=== PATIENT | male | born 1950 | race Caucasian/White ===

== ENCOUNTER 2016-04-28 07:00 | Day surgery (SDC) | payer MEDICARE, BC ==
[2016-04-26 16:35] VITALS: BMI 31.8
[~2016-04-28 07:00] MED LIST: LACTATED RINGERS 1,000 ML IV SCH; LIDOCAINE 1% 20 ML VIAL (10MG/ML) FOR IV START INTRADERMA PRN
[2016-04-28 07:16] VITALS: TEMP 97.4
[2016-04-28] MEDS ORDERED: PROPOFOL 10 MG/ML 20 ML VIAL IV ONE (07:44)
[2016-04-28] MEDS ORDERED: LIDOCAINE 1% INJ 10MG/ML (20 ML MDV) ONE (07:44)
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
--- NOTE | 2016-04-28 08:04 | P.OP ---
Date of Procedure: 04/28/16 Preoperative Diagnosis: Diverticulitis Screening colonoscopy Postoperative Diagnosis: Diverticulosis Rectal polyp Procedure(s) Performed: Colonoscopy Anesthesia: MAC Surgeon: Sam Camejo Pathology: other (Rectal polyp) Condition: stable Disposition: PACU Description of Procedure: The patient's placed on the endoscopy table in the lateral position. He received IV sedation. Digital rectal exam was performed which revealed no abnormalities. The prostate was symmetrical without nodules. The flexible colonoscope was then placed patient anus passed throughout the entire colon. The ileocecal valve was visualized. The cecum, ascending and transverse colon appeared normal. In the descending and sigmoid colon there is mild diverticular changes. There is more extensive diverticular changes and sigmoid colon. The scope was then brought back the rectum and a small polyp was seen. This removed the forcep. The scope was then withdrawn from patient.
[2016-04-28 08:09] VITALS: RESP 16
[2016-04-28 08:13] LABS: INR 1.1 (<1.1); Partial Thromboplastin Time 24.9 sec (22.0-30.0); Prothrombin Time 10.8 sec (9.0-12.0)
[2016-04-28 08:24] VITALS: BP 172/91; PULSE 87
== END 2016-04-28 08:56 | disposition home or self-care (01) ==
LOC: ORWHC2ENDO 07:00
PROVIDERS: ATTEND Surgery
DX: K63.5 Polyp of colon (principal); K57.30 Diverticulosis of large intestine without perforation or abscess without bleeding; K21.9 Gastro-esophageal reflux disease without esophagitis; N02.8 Recurrent and persistent hematuria with other morphologic changes; Z87.891 Personal history of nicotine dependence; Z86.718 Personal history of other venous thrombosis and embolism; Z86.711 Personal history of pulmonary embolism; Z79.01 Long term (current) use of anticoagulants; E78.5 Hyperlipidemia, unspecified; I10 Essential (primary) hypertension; L40.9 Psoriasis, unspecified; G47.33 Obstructive sleep apnea (adult) (pediatric); M10.9 Gout, unspecified; Z79.02 Long term (current) use of antithrombotics/antiplatelets; Z79.899 Other long term (current) drug therapy; Z88.5 Allergy status to narcotic agent
CPT/HCPCS: 88305; 84132; 85610; 85730; 45380; J2001; J2704; 99153

== ENCOUNTER 2016-04-29 06:12 | Inpatient (IN) | payer MEDICARE, BC ==
[~2016-04-29 06:12] MED LIST changes: +DEXAMETHASONE SOD PHOSPHATE 10 MG/ML 1 ML VIAL IV ONE; +HEPARIN SODIUM,PORCINE 5,000 UNIT/ML 1 ML VIAL SQ ONE; -LACTATED RINGERS 1,000 ML IV SCH; -LIDOCAINE 1% 20 ML VIAL (10MG/ML) FOR IV START INTRADERMA PRN; +MIDAZOLAM 2 MG/2 ML VIAL IV PRN; +ONDANSETRON 4 MG/2 ML VIAL IVP ONE; +ceFAZolin 2 GM in SODIUM CHLORIDE 0.9% 100 ML IVPB ONE; +fentaNYL (PF) 50 MCG/ML 2 ML AMP IV PRN
[2016-04-29] MEDS: LACTATED RINGERS 1,000 ML IV SCH (06:43)
[2016-04-29] MEDS ORDERED: LIDOCAINE 1% 20 ML VIAL (10MG/ML) FOR IV START INTRADERMA ONE (06:44)
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
[2016-04-29] MEDS ORDERED: fentaNYL (PF) 50 MCG/ML 2 ML AMP ONE (07:56)
[2016-04-29] MEDS ORDERED: LIDOCAINE 1% INJ 10MG/ML (20 ML MDV) ONE (07:56)
[2016-04-29] MEDS ORDERED: NEOSTIGMINE 1 MG/ML 10 ML VIAL ONE (07:56)
[2016-04-29] MEDS ORDERED: GLYCOPYRROLATE 0.2 MG/ML 2 ML VIAL ONE (07:56)
[2016-04-29] MEDS ORDERED: SUCCINYLCHOLINE CHLORIDE 100 MG/5 ML SYR IV ONE (07:56)
[2016-04-29] MEDS ORDERED: HYDROmorphone (PF) 1 MG/ML ONE (07:56)
[2016-04-29] MEDS ORDERED: PROPOFOL 10 MG/ML 20 ML VIAL IV ONE (07:56)
[2016-04-29] MEDS ORDERED: ROCURONIUM BROMIDE 10 MG/ML 10 ML VIAL IV ONE (07:56)
[2016-04-29] MEDS ORDERED: MIDAZOLAM 2 MG/2 ML VIAL ONE (07:56)
[2016-04-29] MEDS ORDERED: BUPIVACAIN-EPI 0.25%-1:200,000 30 ML VIAL SQ ONE ×2 (08:30)
[2016-04-29] MEDS ORDERED: LACTATED RINGERS 1,000 ML IV ONE ×2 (09:07→10:07)
[2016-04-29] MEDS ORDERED: ONDANSETRON 4 MG/2 ML VIAL IVP PRN (10:07)
[2016-04-29] MEDS ORDERED: BENZOCAINE/MENTHOL LOZENG 1 EACH LOZENGE MUCOUS MEM PRN (10:07)
--- NOTE | 2016-04-29 10:07 | P.OP ---
Date of Procedure: 04/29/16 Preoperative Diagnosis: Perforated diverticulitis Closed lysis Umbilical hernia Postoperative Diagnosis: Diverticulitis Cholelithiasis Umbilical hernia Procedure(s) Performed: Laparoscopic cholecystectomy Laparoscopic-assisted low anterior section Umbilical hernia Anesthesia: MARSHALL Surgeon: Sam Camejo Estimated Blood Loss (ml): 75 Pathology: other (Gallbladder, sigmoid colon) Condition: stable Disposition: PACU Description of Procedure: The patient was placed on the operating table. The patient received a general endotracheal tube anesthesia. The patients abdomen was prepped and draped in the usual sterile fashion. Through an infraumbilical stab incision, the fascia of the anterior abdominal wall was grasped with a pair of Kochers and then the Veress needle was placed in the peritoneal cavity. Position of the Veress needle was confirmed with positive drop test. The abdomen was then insufflated. After adequate insufflation, the 10 mm trocar was placed in the peritoneal cavity. Following this the laparoscope was placed in the peritoneal cavity. The patient was placed in the head-up, right side up position and then a 5 mm trocar was placed in the right lateral and right subcostal position under direct visualization. A 8 mm trocar was placed in the epigastric position. The gallbladder was grasped in the fundus and infundibulum. Traction on the gallbladder was placed in the lateral and the cephalad positions. The triangle of Calot was visualized.. The cystic duct was bluntly dissected until the union of the cystic duct and common bile duct was seen. The cystic duct was then divided and sealed with the Harmonic scissors. A PDS Endoloop was then placed throughout the cystic duct stump. The cystic artery divided and sealed with the Harmonic scissors. The gallbladder was then removed from the liver bed using Harmonic scissors. The gallbladder was then extracted through the epigastric port site. Operative field was checked for any bleeding spots and Harmonic scissors was used to coagulate the liver bed. The abdomen was irrigated. Next the laparoscope was position of the sigmoid colon. There was inflammatory changes seen in the sigmoid colon. The; was adherent to the lateral abdominal wall. Another 5 mm trocar was placed in the right lower quadrant. And then used the Harmonic scissors the sigmoid colon was dissected free from the lateral abdominal wall. The white line of Toldt was divided towards the splenic flexure. In the colon was dissected medially. In the left colon and sigmoid colon were mobilized. At this point the trochars withdrawn. The laparoscope withdrawn. And a low midline incision was made. The colon was further mobilized with blunt and sharp dissection. And then the rectum was transected with the contour stapler. At this point using the LigaSure device the mesentery of the sigmoid colon was divided. The proximal colon was then divided with the linear cutter stapler. The pursestring device was applied on the proximal colon. After the colonic and had been dissected free of any peritoneal fat. The pursestring device was fired and then the colon was opened and the 25 mm EEA stapler anvil was placed into the colon and then the pursestring was secured. The 25 mm EEA stapler was then placed by the first helper into the rectum and then the staple device was guided towards the distal staple line. The stapler was opened and the spike was driven through the staple line and the anvil was connected to the stapler. The stapler was then closed and fired and then withdrawn. 2 intact donuts of tissue rings were withdrawn from stapler. At this point a hydro-sheet metal smith was placed across the proximal colon and then the rectum was insufflated with air via a rigid sigmoidoscope. There was a small amount of extravasation of air on the right lateral aspect and staple line. This was closed using 3-0 GI silk. The air was insufflated back the rectum and there is no extravasation of air seen. The test was done 3 times with an of air pressure for the air to come out around the anus. There is no leak seen. At this point the abdomen was irrigated. The fascia was closed with looped #1 PDS suture. The umbilical hernia repair was performed during the fascial closure. The skin was closed gato. Patient sent to recovery in stable condition.
[2016-04-29] MEDS: HYDROmorphone 1 MG/ML 1 ML SYRINGE IVP ONE ×2 (10:30→10:39)
[2016-04-29] MEDS ORDERED: ENALAPRILAT 1.25 MG/ML 1 ML VIAL IVP ONE (10:39)
[2016-04-29] MEDS ORDERED: LABETALOL SYRINGE 5 MG/ML IVP ONE (10:45)
[2016-04-29] MEDS: HYDROmorphone 1 MG/ML 1 ML SYRINGE IVP PRN ×3 (11:55→23:26)
[2016-04-29] MEDS: NALOXONE 0.4 MG/ML 1 ML VIAL ONE (12:19)
[2016-04-29] MEDS: D5-0.45% NACL WITH KCL 20MEQ/L 1,000 ML IV SCH ×2 (12:29→19:37)
[2016-04-29] MEDS: METOCLOPRAMIDE 5 MG/ML 2 ML VIAL IVP SCH ×3 (13:30→23:25)
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
[2016-04-29] MEDS: HEPARIN SODIUM,PORCINE 5,000 UNIT/ML 1 ML VIAL SQ SCH ×2 (16:48→23:25)
[2016-04-29] MEDS: ALVIMOPAN 12 MG CAPSULE PO SCH (19:45)
[2016-04-29] MEDS: PREGABALIN 75 MG CAP PO SCH (19:45)
[2016-04-29] MEDS: METOPROLOL TARTRATE 50 MG TAB PO SCH (19:45)
[2016-04-29] MEDS: LISINOPRIL 10 MG TAB PO SCH (19:45)
[2016-04-29] MEDS: FAMOTIDINE 20 MG/2 ML VIAL IV SCH (19:45)
[2016-04-29] MEDS: MODAFINIL 200 MG TAB PO SCH (22:07)
[2016-04-30] MEDS: D5-0.45% NACL WITH KCL 20MEQ/L 1,000 ML IV SCH (03:03)
[2016-04-30] MEDS: HYDROmorphone 1 MG/ML 1 ML SYRINGE IVP PRN ×4 (03:03→11:23)
[2016-04-30] MEDS: METOCLOPRAMIDE 5 MG/ML 2 ML VIAL IVP SCH ×4 (06:11→23:42)
[2016-04-30 07:15] LABS: Basophils % (A) 0 %; CH 31.5; CHCM 34.8; Eosinophils % (A) 0 %; HCT 27.6 % (39.0-53.0); HDW 3.11; HGB 9.4 gm/dL (13.0-17.5); Luc # (Auto) 0.16; Luc % (Auto) 2; Lymphocytes # (A) 1.5 k/uL (1.0-4.8); Lymphocytes % (A) 15 %; MCH 31.1 pg (25.0-35.0); MCHC 34.2 g/dL (31.0-37.0); MCV 91.1 fL (80.0-100.0); Monocytes # (A) 0.6 k/uL (0-1.0); Monocytes % (A) 6 %; Neutrophils # (A) 7.9 k/uL (1.3-7.7); Neutrophils % (A) 78 %; RBC 3.03 m/uL (4.30-5.90); RDW 14.1 % (11.5-15.5); WBC 10.2 k/uL (3.8-10.6); WBC (Perox) 11.31
[2016-04-30 07:17] LABS: Calcium 7.7 mg/dL (8.4-10.2); Potassium 5.7 mmol/L (3.5-5.1); Total Bilirubin 0.4 mg/dL (0.2-1.3); Total Protein 5.5 g/dL (6.3-8.2)
[2016-04-30] MEDS: HEPARIN SODIUM,PORCINE 5,000 UNIT/ML 1 ML VIAL SQ SCH (08:27)
[2016-04-30] MEDS: FAMOTIDINE 20 MG/2 ML VIAL IV SCH ×2 (08:28→16:29)
[2016-04-30] MEDS: ATORVASTATIN 20 MG TAB PO SCH (08:28)
[2016-04-30] MEDS: ALVIMOPAN 12 MG CAPSULE PO SCH ×2 (08:28→19:27)
[2016-04-30] MEDS: METOPROLOL TARTRATE 50 MG TAB PO SCH ×2 (08:29→19:27)
[2016-04-30] MEDS: TAMSULOSIN 0.4 MG CAP.ER.24H PO SCH (08:30)
[2016-04-30] MEDS: PREGABALIN 75 MG CAP PO SCH ×2 (08:30→19:27)
[2016-04-30] MEDS: DEXTROSE 5%-0.45% NACL 1,000 ML IV SCH ×3 (08:39→23:43)
[2016-04-30] MEDS: MODAFINIL 200 MG TAB PO SCH ×2 (08:40→21:44)
--- NOTE | 2016-04-30 09:46 | P.PN ---
Subjective Principal diagnosis: Diverticulitis Patient still having abdominal discomfort. Apparently he was having some issues initially with Dilaudid and Narcan was utilized. Small amounts of narcotics of been utilized since that time. Labs were reviewed. Creatinine slightly elevated. White blood cell count normal. Objective - Vital Signs Vital signs: Vital Signs Temp 97.9 F 04/30/16 01:22 Pulse 75 04/30/16 01:22 Resp 16 04/30/16 01:22 BP 131/79 04/30/16 01:22 Pulse Ox 96 04/30/16 01:22 Intake & Output 04/29/16 04/30/16 04/30/16 18:59 06:59 18:59 Intake Total 1700 Output Total 285 600 Balance 1415 -600 Intake: IV 1700 Output: Urine 210 600 Estimated Blood Loss 75 Other: Voiding Method Indwelling Catheter - Exam Abdomen: Soft, mild distention, mild diffuse tenderness, dressings intact - Labs CBC & Chem 7: 04/30/16 06:50 04/30/16 06:50 Labs: Abnormal Lab Results - Last 24 Hours (Table) 04/30/16 04/30/16 Range/Units 06:50 06:50 RBC 3.03 L (4.30-5.90) m/uL Hgb 9.4 L (13.0-17.5) gm/dL Hct 27.6 L (39.0-53.0) % Neutrophils # 7.9 H (1.3-7.7) k/uL Potassium 5.7 H (3.5-5.1) mmol/L Chloride 111 H (98-107) mmol/L BUN 36 H (9-20) mg/dL Creatinine 2.21 H (0.66-1.25) mg/dL Glucose 138 H (74-99) mg/dL Calcium 7.7 L (8.4-10.2) mg/dL Total Protein 5.5 L (6.3-8.2) g/dL Albumin 2.6 L (3.5-5.0) g/dL Assessment and Plan (1) Diverticulitis Narrative/Plan: Keep nothing by mouth for now. Increase activity levels. Add Toradol for pain control. Switch heparin to Lovenox because of the patient's prior history of thrombosis. Status: Acute
[2016-04-30] MEDS: KETOROLAC 30 MG/ML 1 ML VIAL IVP SCH ×3 (11:24→23:42)
[2016-04-30] MEDS ORDERED: NALOXONE 0.4 MG/ML 1 ML VIAL IV PRN (12:07)
[2016-04-30] MEDS: HYDROmorphone PCA 5 MG/25 ML SYRINGE IV PRN (12:25)
--- NOTE | 2016-04-30 14:07 | P.PN ---
Subjective Principal diagnosis: Diverticulitis and cholelithiasis Patient is a 65-year-old male, patient of Dr. Rausch. He has a known history of DVT and multiple PE, obstructive sleep apnea, hypertension, chronic kidney disease, perforated diverticulitis with abscess. Patient presents to the hospital today for laparoscopic cholecystectomy and laparoscopic assisted lower anterior resection. We are consulted for medical management. On review of systems: Patient denies any chest pain, shortness of breath, nausea or vomiting. Patient was having bowel movements prior to surgery. Denies any difficulty urinating prior to surgery. Objective - Vital Signs Vital signs: Vital Signs Temp 98.1 F 04/30/16 07:00 Pulse 71 04/30/16 07:00 Resp 16 04/30/16 07:00 BP 155/85 04/30/16 07:00 Pulse Ox 98 04/30/16 13:01 Intake & Output 04/29/16 04/30/16 04/30/16 18:59 06:59 18:59 Intake Total 1700 Output Total 285 600 Balance 1415 -600 Intake: IV 1700 Output: Urine 210 600 Estimated Blood Loss 75 Other: Voiding Method Indwelling Catheter - Exam In general patient is alert and oriented 3 in no apparent distress HEENT head normocephalic and atraumatic Neck is supple no JVD no goiter no lymphadenopathy Chest exam reveals a few scattered rhonchi no wheezing Cardiac exam reveals regular heart sounds no murmurs Abdomen is soft nontender no organomegaly Extremity exam reveals no edema no cyanosis or clubbing - Labs CBC & Chem 7: 04/30/16 06:50 04/30/16 06:50 Labs: Abnormal Lab Results - Last 24 Hours (Table) 04/30/16 04/30/16 Range/Units 06:50 06:50 RBC 3.03 L (4.30-5.90) m/uL Hgb 9.4 L (13.0-17.5) gm/dL Hct 27.6 L (39.0-53.0) % Neutrophils # 7.9 H (1.3-7.7) k/uL Potassium 5.7 H (3.5-5.1) mmol/L Chloride 111 H (98-107) mmol/L BUN 36 H (9-20) mg/dL Creatinine 2.21 H (0.66-1.25) mg/dL Glucose 138 H (74-99) mg/dL Calcium 7.7 L (8.4-10.2) mg/dL Total Protein 5.5 L (6.3-8.2) g/dL Albumin 2.6 L (3.5-5.0) g/dL Assessment and Plan Plan: 1. Diverticulitis with previous history of perforated diverticulitis, cholelithiasis and umbilical hernia: Patient is postop day #1 status post endoscopic cholecystectomy, laparoscopic assisted lower anterior resection and umbilical hernia repair. Patient tolerated surgery well. Continue with postop orders 2. Episode of respiratory distress after IV Dilaudid. Patient was given Narcan. Symptoms have resolved. Anesthesia is involved in pain management. Patient is now arousable. 3. History of multiple PEs and DVT of the left leg diagnosed in July 2015: On Coumadin at home. 4. IgA nephropathy and chronic kidney disease stage III 5. Essential hypertension: Resume lisinopril and metoprolol 6. Hyperlipidemia resume Lipitor 7. History of obstructive sleep apnea 8. Previous history of abdominal abscess treated with antibiotics 9. Chronic renal failure creatinine stable at baseline Will monitor closely 10. Due to previous history of PE and DVT patient will be placed on Lovenox 80 mg twice daily subcu he will be restarted on Coumadin when okay with surgery
[2016-04-30] MEDS: ENOXAPARIN 80 MG/0.8 ML SYRINGE SQ SCH ×2 (16:28→23:51)
[2016-04-30] MEDS: LISINOPRIL 10 MG TAB PO SCH (19:27)
[2016-04-30] MEDS ORDERED: ENOXAPARIN 40 MG/0.4 ML SYRINGE SQ SCH (21:00)
[2016-05-01] MEDS: METOCLOPRAMIDE 5 MG/ML 2 ML VIAL IVP SCH ×3 (05:39→18:27)
[2016-05-01] MEDS: KETOROLAC 30 MG/ML 1 ML VIAL IVP SCH ×3 (05:39→18:27)
[2016-05-01] MEDS: DEXTROSE 5%-0.45% NACL 1,000 ML IV SCH ×3 (05:42→18:32)
[2016-05-01 07:18] LABS: Basophils % (A) 0 %; CHCM 34.7; Eosinophils # (A) 0.2 k/uL (0-0.7); Eosinophils % (A) 2 %; HCT 26.9 % (39.0-53.0); HDW 3.08; Luc # (Auto) 0.11; Luc % (Auto) 2; Lymphocytes # (A) 2.1 k/uL (1.0-4.8); Lymphocytes % (A) 31 %; MCH 31.1 pg (25.0-35.0); MCHC 33.5 g/dL (31.0-37.0); MCV 92.8 fL (80.0-100.0); Mean Platelet Volume 8.2; Monocytes # (A) 0.4 k/uL (0-1.0); Monocytes % (A) 6 %; Neutrophils % (A) 59 %; RDW 14.2 % (11.5-15.5); WBC 6.7 k/uL (3.8-10.6); WBC (Perox) 6.67
[2016-05-01 07:34] LABS: Potassium 4.6 mmol/L (3.5-5.1); Total Bilirubin 0.5 mg/dL (0.2-1.3); Total Protein 5.5 g/dL (6.3-8.2)
--- NOTE | 2016-05-01 08:30 | P.PN ---
Subjective 65-year-old male being seen in rounds. at bedside. Patient currently is on an epidural in which the patient indicates has been effective for pain control Patient is postop laparoscopic cholecystectomy with a l laparoscopic assisted ow anterior section umbilical hernia for diverticulitis and cholelithiasis done on April 29 remains nothing by mouth Objective - Vital Signs Vital signs: Vital Signs Temp 97.9 F 05/01/16 07:30 Pulse 70 05/01/16 07:30 Resp 15 05/01/16 07:30 BP 156/90 05/01/16 07:30 Pulse Ox 97 05/01/16 07:30 Intake & Output 04/30/16 05/01/16 05/01/16 18:59 06:59 18:59 Intake Total 720 0 Output Total 1999 480 Balance -1280 -480 Intake: Oral 720 0 Output: Urine 1999 480 Straight 400 Uretheral (Daugherty) 1000 Other: Voiding Method Indwelling Catheter Toilet # Voids 2 - Exam Physical exam 65-year-old gentleman resting in bed in arousable to verbal stimuli appears in no acute distress oriented 3 Lungs essentially clear adequate air movement heart S1-S2 audible and regular Abdomen few hypoactive bowel tones noted abdominal dressing no no drainage noted abdominal binder in place currently nothing by mouth reportedly is urinating with no difficulty Extremities Venodyne's on to the bilateral lower extremities no edema - Labs CBC & Chem 7: 05/01/16 06:44 05/01/16 06:44 Labs: Abnormal Lab Results - Last 24 Hours (Table) 05/01/16 05/01/16 Range/Units 06:44 06:44 RBC 2.90 L (4.30-5.90) m/uL Hgb 9.0 L (13.0-17.5) gm/dL Hct 26.9 L (39.0-53.0) % Chloride 111 H (98-107) mmol/L BUN 36 H (9-20) mg/dL Creatinine 2.50 H (0.66-1.25) mg/dL Calcium 8.0 L (8.4-10.2) mg/dL Total Protein 5.5 L (6.3-8.2) g/dL Albumin 2.6 L (3.5-5.0) g/dL Assessment and Plan Plan: Impression Postop day 2 status post endoscopic cholecystectomy, laparoscopic assisted low anterior resection and an umbilical hernia repair History of multiple PEs and DVTs of the left leg diagnosed in July 2015 on Coumadin at home History of diverticulitis with previous history of perforated diverticulitis History of obstructive sleep apnea Essential Hypertension Episode of respiratory distress after IV Dilaudid. Patient was given Narcan. Symptoms have resolved .IgA nephropathy and chronic kidney disease stage III Hyperlipidemia Chronic renal failure creatinine stable Hyperkalemia improving potassium 4.6 Plan Anesthesia to be involved in pain management defer to When appropriate will restart Coumadin continue Lovenox 80 mg twice a day as ordered Continue postop surgical care per surgery Repeat labs monitor creatinine Monitor blood pressure and heart rate address as indicated DVT and GI prophylaxis Further recommendations pending Continue Lopressor 50 twice a day Continue lisinopril 10 mg at bedtime as ordered monitor potassium The above dictated assessment and findings were discussed with dr freddy Kay and the plan of care have been dictated as directed. Giovanna Post nurse practitioner acting as a scribe for dr hayes
[2016-05-01] MEDS: TAMSULOSIN 0.4 MG CAP.ER.24H PO SCH (09:17)
[2016-05-01] MEDS: ALVIMOPAN 12 MG CAPSULE PO SCH ×2 (09:17→20:30)
[2016-05-01] MEDS: ENOXAPARIN 80 MG/0.8 ML SYRINGE SQ SCH (09:17)
[2016-05-01] MEDS: METOPROLOL TARTRATE 50 MG TAB PO SCH ×2 (09:17→20:25)
[2016-05-01] MEDS: FAMOTIDINE 20 MG/2 ML VIAL IV SCH (09:22)
[2016-05-01] MEDS: PREGABALIN 75 MG CAP PO SCH ×2 (09:44→20:25)
[2016-05-01] MEDS: ATORVASTATIN 20 MG TAB PO SCH (09:45)
--- NOTE | 2016-05-01 10:47 | P.PN ---
Subjective Principal diagnosis: Diverticulitis I have been updated by the patient's nursing staff throughout the afternoon and evening yesterday. His pain was intermittently controlled yesterday morning with Dilaudid IV push. The [employer] was started yesterday afternoon which apparently led to excellent pain control per the nursing staff and the patient admits that his pain has been about a 2-3 since yesterday afternoon when the [employer] was started. There have been a variety of social issues over the last 24- 48 hours. The patient's has per the nursing staff been belligerent and threatening at times. For the most part I was not witnessed to this. When I evaluated the patient yesterday morning and I suggested starting Toradol the mentioned that in the past it did not work well for him for pain control and that they actually had used it for nausea symptoms. I suggested that it may help when adding into the narcotics. She never told me that she did not want the Toradol given but later in the afternoon notified the nursing staff that I had been instructed by her not to prescribe Toradol. That was clearly not true. This morning the patient's became once again argumentative and apparently after threatening the nursing staff once again was escorted out of the building by security. The patient states that he wants to be transferred if his cannot be visiting him in his hospital room. He still has having adequate pain control with his [employer]. He is afebrile. No tachycardia. White blood cell count 6.7 hemoglobin 9.0 no flatus. The patient is upset that his clear liquid diet was held however I informed the patient that his diet was held because of the amount of discomfort he was having yesterday. Objective - Vital Signs Vital signs: Vital Signs Temp 97.9 F 05/01/16 07:30 Pulse 70 05/01/16 07:30 Resp 15 05/01/16 07:30 BP 156/90 05/01/16 07:30 Pulse Ox 97 05/01/16 07:30 Intake & Output 04/30/16 05/01/16 05/01/16 18:59 06:59 18:59 Intake Total 720 0 Output Total 1999 480 Balance -1280 -480 Intake: Oral 720 0 Output: Urine 1999 480 Straight 400 Uretheral (Daugherty) 1000 Other: Voiding Method Indwelling Catheter Toilet # Voids 2 - Exam Abdomen: Soft, mild distention, mild incisional tenderness, incision clean and dry however the dressing had some old bloody fluid - Labs CBC & Chem 7: 05/01/16 06:44 05/01/16 06:44 Labs: Abnormal Lab Results - Last 24 Hours (Table) 05/01/16 05/01/16 Range/Units 06:44 06:44 RBC 2.90 L (4.30-5.90) m/uL Hgb 9.0 L (13.0-17.5) gm/dL Hct 26.9 L (39.0-53.0) % Chloride 111 H (98-107) mmol/L BUN 36 H (9-20) mg/dL Creatinine 2.50 H (0.66-1.25) mg/dL Calcium 8.0 L (8.4-10.2) mg/dL Total Protein 5.5 L (6.3-8.2) g/dL Albumin 2.6 L (3.5-5.0) g/dL Assessment and Plan (1) Diverticulitis Narrative/Plan: Will begin clear liquid diet. Continue [employer] for pain control. Increase activity level. Continue working with the patient's family to determine whether transfer out of this facility is necessary. Status: Acute
[2016-05-01] MEDS: MODAFINIL 200 MG TAB PO SCH ×2 (12:17→20:43)
[2016-05-01 19:17] LABS: Basophils % (A) 0 %; CH 31.6; CHCM 34.2; Eosinophils # (A) 0.3 k/uL (0-0.7); Eosinophils % (A) 5 %; HCT 26.1 % (39.0-53.0); HDW 3.05; HGB 8.8 gm/dL (13.0-17.5); Luc # (Auto) 0.13; Luc % (Auto) 2; Lymphocytes % (A) 32 %; MCH 31.4 pg (25.0-35.0); MCHC 33.8 g/dL (31.0-37.0); Mean Platelet Volume 8.5; Monocytes # (A) 0.4 k/uL (0-1.0); Monocytes % (A) 6 %; Neutrophils # (A) 3.6 k/uL (1.3-7.7); Neutrophils % (A) 56 %; RDW 14.2 % (11.5-15.5); WBC 6.5 k/uL (3.8-10.6); WBC (Perox) 6.39
[2016-05-01 19:36] LABS: INR 1.2 (<1.1); Partial Thromboplastin Time 32.8 sec (22.0-30.0); Prothrombin Time 12.1 sec (9.0-12.0)
[2016-05-01] MEDS: LISINOPRIL 10 MG TAB PO SCH (20:25)
[2016-05-01] MEDS: LACTATED RINGERS 1,000 ML IV SCH (22:20)
[2016-05-02] MEDS: METOCLOPRAMIDE 5 MG/ML 2 ML VIAL IVP SCH ×4 (01:05→17:29)
[2016-05-02] MEDS: HYDROmorphone PCA 5 MG/25 ML SYRINGE IV PRN (01:40)
[2016-05-02] MEDS: TAMSULOSIN 0.4 MG CAP.ER.24H PO SCH (08:06)
[2016-05-02] MEDS: METOPROLOL TARTRATE 50 MG TAB PO SCH ×2 (08:06→21:37)
[2016-05-02] MEDS: ALVIMOPAN 12 MG CAPSULE PO SCH ×2 (08:06→21:37)
[2016-05-02] MEDS: PREGABALIN 75 MG CAP PO SCH ×2 (08:06→21:37)
[2016-05-02] MEDS: DEXTROSE 5%-0.45% NACL 1,000 ML IV SCH ×2 (08:07→21:39)
[2016-05-02] MEDS: ALPRAZolam 0.25 MG TAB PO SCH ×2 (09:00→21:38)
[2016-05-02] MEDS: FAMOTIDINE 20 MG/2 ML VIAL IV SCH (09:00)
[2016-05-02] MEDS: MODAFINIL 200 MG TAB PO SCH ×2 (09:02→18:16)
[2016-05-02 09:03] LABS: Basophils # (A) 0.1 k/uL (0-0.2); Basophils % (A) 1 %; CH 31.7; CHCM 34.2; Eosinophils # (A) 0.3 k/uL (0-0.7); Eosinophils % (A) 3 %; HCT 24.5 % (39.0-53.0); HDW 3.21; HGB 8.3 gm/dL (13.0-17.5); Luc # (Auto) 0.18; Luc % (Auto) 2; Lymphocytes # (A) 2.3 k/uL (1.0-4.8); Lymphocytes % (A) 21 %; MCH 31.8 pg (25.0-35.0); MCV 93.5 fL (80.0-100.0); Mean Platelet Volume 8.3; Monocytes # (A) 0.7 k/uL (0-1.0); Monocytes % (A) 6 %; Neutrophils # (A) 7.7 k/uL (1.3-7.7); Neutrophils % (A) 69 %; RBC 2.62 m/uL (4.30-5.90); RDW 14.3 % (11.5-15.5); WBC 11.3 k/uL (3.8-10.6); WBC (Perox) 11.72
[2016-05-02] MEDS: ATORVASTATIN 20 MG TAB PO SCH (09:04)
[2016-05-02 09:30] LABS: Calcium 7.9 mg/dL (8.4-10.2); Potassium 4.5 mmol/L (3.5-5.1); Total Bilirubin 0.5 mg/dL (0.2-1.3); Total Protein 5.5 g/dL (6.3-8.2)
[2016-05-02] MEDS: hydrALAZINE HCL 20 MG/ML 1 ML VIAL IVP PRN (10:10)
--- NOTE | 2016-05-02 14:12 | P.PN ---
Subjective Patient presents to the hospital today for laparoscopic cholecystectomy and laparoscopic assisted lower anterior resection. Patient had a lot of sanguinous drainage from incision site. Abdominal pressure dressings were added. His hemoglobin has dropped from 8.8-8.3. Surgery is following closely. He did have a jump in his white count 11.3. Patient's pain is better controlled with the [employer] pump. He is lying in bed comfortably with no distress. He is sleeping. He is arousable. Xanax was added for his anxiety. He denies any chest pain, shortness breath, nausea or vomiting he has not passed gas or had bowel movement yet. Objective - Vital Signs Vital signs: Vital Signs Temp 98.0 F 05/02/16 07:00 Pulse 76 05/02/16 07:00 Resp 18 05/02/16 07:00 BP 152/108 05/02/16 07:00 Pulse Ox 98 05/02/16 07:00 Intake & Output 05/01/16 05/02/16 05/02/16 18:59 06:59 18:59 Output Total 525 Balance -525 Output: Urine 525 Other: Voiding Method Toilet Urinal # Voids 2 # Bowel Movements 0 - Exam Head normocephalic Neck supple Lungs clear to auscultation bilaterally no wheezing or crackles Heart regular rate and rhythm S1-S2, no rub or gallop Abdomen is soft and distended hypoactive bowel sounds. Abdominal binder in place Extremities no edema Neuro alert and orientated to 3 - Labs CBC & Chem 7: 05/02/16 07:57 05/02/16 07:57 Labs: Abnormal Lab Results - Last 24 Hours (Table) 05/01/16 05/01/16 05/02/16 Range/Units 19:06 19:06 07:57 WBC 11.3 H (3.8-10.6) k/uL RBC 2.80 L 2.62 L (4.30-5.90) m/uL Hgb 8.8 L 8.3 L (13.0-17.5) gm/dL Hct 26.1 L 24.5 L (39.0-53.0) % PT 12.1 H (9.0-12.0) sec APTT 32.8 H (22.0-30.0) sec Chloride (98-107) mmol/L Carbon Dioxide (22-30) mmol/L BUN (9-20) mg/dL Creatinine (0.66-1.25) mg/dL Glucose (74-99) mg/dL Calcium (8.4-10.2) mg/dL Total Protein (6.3-8.2) g/dL Albumin (3.5-5.0) g/dL 05/02/16 Range/Units 07:57 WBC (3.8-10.6) k/uL RBC (4.30-5.90) m/uL Hgb (13.0-17.5) gm/dL Hct (39.0-53.0) % PT (9.0-12.0) sec APTT (22.0-30.0) sec Chloride 109 H (98-107) mmol/L Carbon Dioxide 21 L (22-30) mmol/L BUN 32 H (9-20) mg/dL Creatinine 2.54 H (0.66-1.25) mg/dL Glucose 139 H (74-99) mg/dL Calcium 7.9 L (8.4-10.2) mg/dL Total Protein 5.5 L (6.3-8.2) g/dL Albumin 2.7 L (3.5-5.0) g/dL Assessment and Plan Plan: 1. Diverticulitis with previous history of perforated diverticulitis, cholelithiasis and umbilical hernia: Patient is postop day #3 status post endoscopic cholecystectomy, laparoscopic assisted lower anterior resection and umbilical hernia repair. Patient tolerated surgery well. Continue with postop orders 2. Episode of respiratory distress after IV Dilaudid. Patient was given Narcan. Symptoms have resolved. Anesthesia is involved in pain management. Patient is now arousable. 3. History of multiple PEs and DVT of the left leg diagnosed in July 2015: On Coumadin at home. 4. IgA nephropathy and chronic kidney disease stage III 5. Essential hypertension: Resume lisinopril and metoprolol. Continue hydralazine when necessary 6. Hyperlipidemia resume Lipitor 7. History of obstructive sleep apnea 8. Previous history of abdominal abscess treated with antibiotics 9. Leukocytosis: White count is up to 11.3. Repeat CBC in a.m. 10. Anemia likely secondary to acute blood loss anemia. Patient has been having significant bleeding from his incision sites. Surgery is following. Continue with current pressure dressing. Continue to monitor CBC daily DVT prophylaxis continue with the Lovenox 80 mg subcu every 12
--- NOTE | 2016-05-02 16:02 | P.PN ---
Subjective Principal diagnosis: Perforated diverticulitis Patient is a 65-year-old white male with medical history significant for perforated diverticulitis and cholelithiasis presenting to the hospital for laparoscopic cholecystectomy and laparoscopic assisted lower anterior resection. Patient is evaluated at bedside where he is currently sleeping but arousable to verbal stimuli. Apparently patient had some sanguinous drainage from his incision site last night and a pressure dressing was applied. Dressing changed on rounds with no evidence of active bleeding. Denies chills, fevers, nausea, or vomiting. Afebrile. WBC increased to 11.3. Hemoglobin stable at 8.3. Patient denies flatus or bowel movements. Urine output adequate. Objective - Vital Signs Vital signs: Vital Signs Temp 98.0 F 05/02/16 07:00 Pulse 76 05/02/16 07:00 Resp 18 05/02/16 07:00 BP 152/108 05/02/16 07:00 Pulse Ox 98 05/02/16 07:00 Intake & Output 05/01/16 05/02/16 05/02/16 18:59 06:59 18:59 Output Total 525 Balance -525 Output: Urine 525 Other: Voiding Method Toilet Urinal # Voids 2 # Bowel Movements 0 - Exam GENERAL: Pt is sleeping but awakes to verbal stimuli, well-nourished, in no acute distress. LUNGS: Breath sounds clear to auscultation bilaterally. No wheezes, rales, or rhonchi. HEART: Heart S1, S2, no S3 or S4. Regular rate and rhythm. No murmurs, rubs or gallops. ABDOMEN: Soft, mild incisional tenderness, mildly distended, hypoactive bowel sounds. No guarding, no rebound. Abdominal incision approximated. No evidence of erythema or purulent drainage. [place] intact. Moderate old serosanguineous drainage noted on dressings. Abdominal binder in place. - Labs CBC & Chem 7: 05/02/16 07:57 05/02/16 07:57 Labs: Abnormal Lab Results - Last 24 Hours (Table) 05/01/16 05/01/16 05/02/16 Range/Units 19:06 19:06 07:57 WBC 11.3 H (3.8-10.6) k/uL RBC 2.80 L 2.62 L (4.30-5.90) m/uL Hgb 8.8 L 8.3 L (13.0-17.5) gm/dL Hct 26.1 L 24.5 L (39.0-53.0) % PT 12.1 H (9.0-12.0) sec APTT 32.8 H (22.0-30.0) sec Chloride (98-107) mmol/L Carbon Dioxide (22-30) mmol/L BUN (9-20) mg/dL Creatinine (0.66-1.25) mg/dL Glucose (74-99) mg/dL Calcium (8.4-10.2) mg/dL Total Protein (6.3-8.2) g/dL Albumin (3.5-5.0) g/dL 05/02/16 Range/Units 07:57 WBC (3.8-10.6) k/uL RBC (4.30-5.90) m/uL Hgb (13.0-17.5) gm/dL Hct (39.0-53.0) % PT (9.0-12.0) sec APTT (22.0-30.0) sec Chloride 109 H (98-107) mmol/L Carbon Dioxide 21 L (22-30) mmol/L BUN 32 H (9-20) mg/dL Creatinine 2.54 H (0.66-1.25) mg/dL Glucose 139 H (74-99) mg/dL Calcium 7.9 L (8.4-10.2) mg/dL Total Protein 5.5 L (6.3-8.2) g/dL Albumin 2.7 L (3.5-5.0) g/dL Assessment and Plan Plan: Impression: 1. Status post laparoscopic cholecystectomy for cholelithiasis on 04/29/2016. 2. Status post laparoscopic-assisted low anterior resection on 04/29/2016. 3. Umbilical hernia. 4. Diverticulitis with history of perforated diverticulitis. 5. Acute blood loss anemia. Hemoglobin 8.3. Plan: 1. Continue clear liquid diet. Continue supportive treatment and pain management. Continue to monitor for further evidence of overt bleeding and monitor hemoglobin. Continue local wound care. Continue GI and DVT prophylaxis. Increase activity. Continue incentive spirometry 10 times an hour while awake. Continue to follow with medical team. Repeat CBC and BMP in a.m. The above impression and plan have been discussed and directed by dR. Camejo. Nayla PERALTA acting as scribe for Dr. Camejo.
[2016-05-02] MEDS: LISINOPRIL 10 MG TAB PO SCH (21:37)
[2016-05-03] MEDS: METOCLOPRAMIDE 5 MG/ML 2 ML VIAL IVP SCH ×5 (00:04→23:57)
[2016-05-03 08:26] LABS: Basophils # (A) 0.1 k/uL (0-0.2); Basophils % (A) 1 %; CH 31.6; CHCM 33.9; Eosinophils # (A) 0.2 k/uL (0-0.7); Eosinophils % (A) 3 %; HDW 3.23; Luc # (Auto) 0.19; Luc % (Auto) 3; Lymphocytes # (A) 1.9 k/uL (1.0-4.8); Lymphocytes % (A) 29 %; MCH 31.1 pg (25.0-35.0); MCHC 33.1 g/dL (31.0-37.0); Mean Platelet Volume 8.1; Monocytes # (A) 0.5 k/uL (0-1.0); Monocytes % (A) 7 %; Neutrophils # (A) 3.8 k/uL (1.3-7.7); Neutrophils % (A) 58 %; RBC 2.05 m/uL (4.30-5.90); RDW 14.6 % (11.5-15.5); WBC 6.7 k/uL (3.8-10.6); WBC (Perox) 6.74
[2016-05-03 08:29] LABS: Calcium 7.8 mg/dL (8.4-10.2); Potassium 4.2 mmol/L (3.5-5.1); Total Bilirubin 0.5 mg/dL (0.2-1.3); Total Protein 4.9 g/dL (6.3-8.2)
[2016-05-03 08:32] LABS: HCT 19.3 % (39.0-53.0); HGB 6.4 gm/dL (13.0-17.5)
[2016-05-03] MEDS: ALPRAZolam 0.25 MG TAB PO SCH ×2 (09:01→21:48)
[2016-05-03] MEDS: ATORVASTATIN 20 MG TAB PO SCH (09:06)
[2016-05-03] MEDS: TAMSULOSIN 0.4 MG CAP.ER.24H PO SCH (09:06)
[2016-05-03] MEDS: ALVIMOPAN 12 MG CAPSULE PO SCH ×2 (09:06→22:12)
[2016-05-03] MEDS: METOPROLOL TARTRATE 50 MG TAB PO SCH ×2 (09:07→21:49)
[2016-05-03] MEDS: FAMOTIDINE 20 MG/2 ML VIAL IV SCH (09:07)
[2016-05-03] MEDS: PREGABALIN 75 MG CAP PO SCH ×2 (09:07→21:49)
[2016-05-03] MEDS: MODAFINIL 200 MG TAB PO SCH ×2 (09:08→17:01)
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
--- NOTE | 2016-05-03 12:34 | P.PN ---
Progress Note - Text The patient developed abdominal wall bleeding late Monday night. He was on Lovenox 80 mg subcu twice a day. His bleeding started 48 hours after surgery. I discussed this with Dr. hayes. His Lovenox will be cut down to 40 mg subcu twice a day due to his bleeding complication on the higher dose of Lovenox.
[2016-05-03] MEDS: SODIUM BICARBONATE TAB 650 MG TAB PO SCH ×2 (12:48→22:12)
[2016-05-03] MEDS: DEXTROSE 5%-0.45% NACL 1,000 ML IV SCH ×2 (12:49→23:58)
--- NOTE | 2016-05-03 16:02 | P.PN ---
Subjective Principal diagnosis: Diverticulitis and cholelithiasis Patient is a 65-year-old male, patient of Dr. Rausch. He has a known history of DVT and multiple PE, obstructive sleep apnea, hypertension, chronic kidney disease, perforated diverticulitis with abscess. Patient presents to the hospital today for laparoscopic cholecystectomy and laparoscopic assisted lower anterior resection. We are consulted for medical management. On review of systems: Patient denies any chest pain, shortness of breath, nausea or vomiting. Patient was having bowel movements prior to surgery. Denies any difficulty urinating prior to surgery. Patient had some bleeding from his wound was anemia requiring red blood cell transfusion today Objective - Vital Signs Vital signs: Vital Signs Temp 98.2 F 05/03/16 14:37 Pulse 76 05/03/16 14:37 Resp 14 05/03/16 14:37 BP 129/83 05/03/16 14:37 Pulse Ox 96 05/03/16 14:35 Intake & Output 05/02/16 05/03/16 05/03/16 18:59 06:59 18:59 Intake Total 790 Output Total 425 200 300 Balance -425 -200 490 Weight 106.594 kg Intake: Oral 480 Blood Product 310 Rc As-1 Unit 0 [id number] Rc As-1 Unit 310 [id number] Output: Urine 425 200 300 Other: # Voids 2 - Exam In general patient is alert and oriented 3 in no apparent distress HEENT head normocephalic and atraumatic Neck is supple no JVD no goiter no lymphadenopathy Chest exam reveals a few scattered rhonchi no wheezing Cardiac exam reveals regular heart sounds no murmurs Abdomen is soft nontender no organomegaly Extremity exam reveals no edema no cyanosis or clubbing - Labs CBC & Chem 7: 05/03/16 07:34 05/03/16 07:34 Labs: Abnormal Lab Results - Last 24 Hours (Table) 05/03/16 05/03/16 05/03/16 Range/Units 07:34 07:34 09:18 RBC 2.05 L (4.30-5.90) m/uL Hgb 6.4 L* D (13.0-17.5) gm/dL Hct 19.3 L* (39.0-53.0) % Chloride 110 H (98-107) mmol/L Carbon Dioxide 19 L (22-30) mmol/L BUN 32 H (9-20) mg/dL Creatinine 2.73 H (0.66-1.25) mg/dL Glucose 103 H (74-99) mg/dL Calcium 7.8 L (8.4-10.2) mg/dL Total Protein 4.9 L (6.3-8.2) g/dL Albumin 2.3 L (3.5-5.0) g/dL Crossmatch See Detail Assessment and Plan Plan: 1. Diverticulitis with previous history of perforated diverticulitis, cholelithiasis and umbilical hernia: Patient is postop day #1 status post endoscopic cholecystectomy, laparoscopic assisted lower anterior resection and umbilical hernia repair. Patient tolerated surgery well. Continue with postop orders 2. Episode of respiratory distress after IV Dilaudid. Patient was given Narcan. Symptoms have resolved. Anesthesia is involved in pain management. Patient is now arousable. 3. History of multiple PEs and DVT of the left leg diagnosed in July 2015: On Coumadin at home. 4. IgA nephropathy and chronic kidney disease stage III 5. Essential hypertension: Resume lisinopril and metoprolol 6. Hyperlipidemia resume Lipitor 7. History of obstructive sleep apnea 8. Previous history of abdominal abscess treated with antibiotics 9. Chronic renal failure creatinine stable at baseline Will monitor closely 10. Abdominal wound bleeding with anemia requiring red blood cell transfusion at this time dose of the Lovenox was held will restart tomorrow at 40 mg subcu every 12 hours will use SCD stockings and monitor closely for any sign of blood clots
--- NOTE | 2016-05-03 20:22 | XR ---
EXAMINATION TYPE: XR chest 2V DATE OF EXAM: 05/03/2016 8:15 PM COMPARISON: 10/25/2015 HISTORY: Rehabilitation placement TECHNIQUE: Frontal and lateral views of the chest are obtained. FINDINGS: Heart is enlarged. There is coarsening of interstitial pulmonary markings. There is blunti ng of right costophrenic angle. There are no hilar masses. There is a poor inspiration. There is also blunting of left costophrenic angle. IMPRESSION: There are apparent new bilateral pleural effusions with mild pulmonary congestion compar ed to last exam. This is consistent with mild new heart failure. Atheromatous aorta noted.
[2016-05-03] MEDS ORDERED: ENOXAPARIN 40 MG/0.4 ML SYRINGE SQ SCH (21:00)
[2016-05-03] MEDS: LISINOPRIL 10 MG TAB PO SCH (21:48)
[2016-05-04 00:26] LABS: Basophils % (A) 1 %; CH 31.5; CHCM 35.4; Eosinophils # (A) 0.3 k/uL (0-0.7); Eosinophils % (A) 4 %; HCT 25.4 % (39.0-53.0); Luc # (Auto) 0.16; Luc % (Auto) 2; Lymphocytes % (A) 25 %; MCH 31.8 pg (25.0-35.0); MCHC 35.6 g/dL (31.0-37.0); MCV 89.5 fL (80.0-100.0); Mean Platelet Volume 7.8; Monocytes # (A) 0.5 k/uL (0-1.0); Monocytes % (A) 6 %; Neutrophils # (A) 5.1 k/uL (1.3-7.7); Neutrophils % (A) 63 %; RBC 2.84 m/uL (4.30-5.90); RDW 14.5 % (11.5-15.5); WBC 8.2 k/uL (3.8-10.6); WBC (Perox) 7.97
[2016-05-04] MEDS: hydrALAZINE HCL 20 MG/ML 1 ML VIAL IVP PRN ×2 (01:30→09:44)
[2016-05-04] MEDS: METOCLOPRAMIDE 5 MG/ML 2 ML VIAL IVP SCH ×4 (06:21→23:43)
[2016-05-04] MEDS: HYDROmorphone PCA 5 MG/25 ML SYRINGE IV PRN (08:54)
[2016-05-04 09:13] LABS: Calcium 8.2 mg/dL (8.4-10.2); Potassium 4.7 mmol/L (3.5-5.1); Total Bilirubin 0.8 mg/dL (0.2-1.3); Total Protein 5.6 g/dL (6.3-8.2)
[2016-05-04 09:17] LABS: Basophils % (A) 0 %; CH 31.3; CHCM 35.2; Eosinophils # (A) 0.3 k/uL (0-0.7); Eosinophils % (A) 4 %; HCT 27.2 % (39.0-53.0); HDW 3.31; HGB 9.4 gm/dL (13.0-17.5); Luc # (Auto) 0.23; Luc % (Auto) 3; Lymphocytes # (A) 1.7 k/uL (1.0-4.8); Lymphocytes % (A) 20 %; MCH 30.9 pg (25.0-35.0); MCHC 34.6 g/dL (31.0-37.0); MCV 89.4 fL (80.0-100.0); Mean Platelet Volume 7.4; Monocytes # (A) 0.5 k/uL (0-1.0); Monocytes % (A) 7 %; Neutrophils # (A) 5.4 k/uL (1.3-7.7); Neutrophils % (A) 66 %; RBC 3.04 m/uL (4.30-5.90); RDW 14.7 % (11.5-15.5); WBC 8.2 k/uL (3.8-10.6); WBC (Perox) 8.51
[2016-05-04] MEDS: ENOXAPARIN 40 MG/0.4 ML SYRINGE SQ SCH (09:43)
[2016-05-04] MEDS: METOPROLOL TARTRATE 50 MG TAB PO SCH ×2 (09:44→21:58)
[2016-05-04] MEDS: PREGABALIN 75 MG CAP PO SCH ×2 (09:44→21:58)
[2016-05-04] MEDS: TAMSULOSIN 0.4 MG CAP.ER.24H PO SCH ×2 (09:44→21:58)
[2016-05-04] MEDS: ALVIMOPAN 12 MG CAPSULE PO SCH ×2 (09:44→21:58)
[2016-05-04] MEDS: SODIUM BICARBONATE TAB 650 MG TAB PO SCH ×2 (09:44→21:59)
[2016-05-04] MEDS: ATORVASTATIN 20 MG TAB PO SCH (09:45)
[2016-05-04] MEDS: FAMOTIDINE 20 MG/2 ML VIAL IV SCH (09:45)
[2016-05-04] MEDS: MODAFINIL 200 MG TAB PO SCH ×2 (09:49→14:12)
[2016-05-04] MEDS: ALPRAZolam 0.25 MG TAB PO SCH ×2 (10:41→21:58)
[2016-05-04 13:01] LABS: Appearance,Urine Clear (Clear); Bilirubin,Urine Negative (Negative); Glucose,Urine (UA) Negative (Negative); Ketones,Urine Negative (Negative); Leukocyte Esterase,Urine Negative (Negative); Nitrite,Urine Negative (Negative); Particle Count 1806; Protein,Urine Trace (Negative); RBC,Urine 4 /hpf (0-5); Specific Gravity,Urine 1.005 (1.001-1.035); UA Billing (MACRO vs. MICRO) MICRO; Urobilinogen,Urine <2.0 mg/dL (<2.0); WBC,Urine 2 /hpf (0-5)
--- NOTE | 2016-05-04 14:02 | P.PN ---
<Nayla Adrian - Last Filed: 05/04/16 13:57> Subjective Principal diagnosis: Perforated diverticulitis Patient is a 65-year-old white male with medical history significant for perforated diverticulitis and cholelithiasis presenting to the hospital for laparoscopic cholecystectomy and laparoscopic assisted lower anterior resection. Patient is feeling better. Denies nausea, vomiting, shortness of breath, or chest pain. Incisional pain controlled. Patient is having some urinary retention. Nephrology is following patient for acute on chronic renal failure and will address need for Daugherty catheter. Afebrile. No evidence of leukocytosis. Hemoglobin stable at 9.4. Patient reports flatus and feels like he's can have a bowel movement. Creatinine improved. Objective - Vital Signs Vital signs: Vital Signs Temp 97.4 F L 05/04/16 07:33 Pulse 95 05/04/16 07:33 Resp 19 05/04/16 07:33 BP 176/103 05/04/16 07:33 Pulse Ox 95 05/04/16 07:33 Intake & Output 05/03/16 05/04/16 05/04/16 18:59 06:59 18:59 Intake Total 1340 Output Total 300 2400 1000 Balance 1040 -2400 -1000 Weight 106.594 kg Intake: Oral 720 Blood Product 620 Rc As-1 Unit 310 [id number] Rc As-1 Unit 310 [id number] Output: Urine 300 2400 1000 Straight 1000 Other: Voiding Method Urinal Urinal - Exam GENERAL: Pt is awake and alert, lying in bed, in no acute distress. LUNGS: Breath sounds clear to auscultation bilaterally. No wheezes, rales, or rhonchi. HEART: Heart S1, S2, no S3 or S4. Regular rate and rhythm. No murmurs, rubs or gallops. ABDOMEN: Soft, mild incisional tenderness, mildly distended, active bowel sounds. No guarding, no rebound. Abdominal incision approximated. No evidence of erythema or purulent drainage. [place] intact. Minimal sanguinous drainage noted on dressing. Abdominal binder in place. - Labs CBC & Chem 7: 05/04/16 08:31 05/04/16 08:31 Labs: Abnormal Lab Results - Last 24 Hours (Table) 05/03/16 05/04/16 05/04/16 Range/Units 09:18 00:08 08:31 RBC 2.84 L 3.04 L (4.30-5.90) m/uL Hgb 9.0 L D 9.4 L (13.0-17.5) gm/dL Hct 25.4 L 27.2 L (39.0-53.0) % Chloride (98-107) mmol/L BUN (9-20) mg/dL Creatinine (0.66-1.25) mg/dL Calcium (8.4-10.2) mg/dL AST (17-59) U/L Total Protein (6.3-8.2) g/dL Albumin (3.5-5.0) g/dL Urine Protein (Negative) Urine Blood (Negative) Crossmatch See Detail 05/04/16 05/04/16 Range/Units 08:31 12:22 RBC (4.30-5.90) m/uL Hgb (13.0-17.5) gm/dL Hct (39.0-53.0) % Chloride 112 H (98-107) mmol/L BUN 30 H (9-20) mg/dL Creatinine 2.45 H (0.66-1.25) mg/dL Calcium 8.2 L (8.4-10.2) mg/dL AST 71 H (17-59) U/L Total Protein 5.6 L (6.3-8.2) g/dL Albumin 2.7 L (3.5-5.0) g/dL Urine Protein Trace H (Negative) Urine Blood Moderate H (Negative) Crossmatch Assessment and Plan Plan: Impression: 1. Status post laparoscopic cholecystectomy for cholelithiasis on 04/29/2016. 2. Status post laparoscopic-assisted low anterior resection on 04/29/2016. 3. Umbilical hernia. 4. Diverticulitis with history of perforated diverticulitis. 5. Acute blood loss anemia requiring 2 units of PRBC. Hemoglobin stable at 9.4. Plan: 1. Advance diet to full liquids. Continue supportive treatment and pain management. Continue to monitor for further evidence of overt bleeding and monitor hemoglobin. Continue local wound care. Continue GI and DVT prophylaxis. Increase activity. Continue incentive spirometry 10 times an hour while awake. Continue to follow with medical team. Repeat CBC and BMP in a.m. The above impression and plan have been discussed and directed by Dr. Camejo. Nayla PERALTA acting as scribe for Dr. Camejo. <Sam Camejo - Last Filed: 05/04/16 16:58> Objective - Vital Signs Vital signs: Vital Signs Temp 97.5 F L 05/04/16 16:13 Pulse 82 05/04/16 16:13 Resp 20 05/04/16 16:13 BP 139/86 05/04/16 16:13 Pulse Ox 96 05/04/16 16:13 Intake & Output 05/03/16 05/04/16 05/04/16 18:59 06:59 18:59 Intake Total 1340 Output Total 300 2400 1000 Balance 1040 -2400 -1000 Weight 106.594 kg Intake: Oral 720 Blood Product 620 Rc As-1 Unit 310 [id number] Rc As-1 Unit 310 [id number] Output: Urine 300 2400 1000 Straight 1000 Other: Voiding Method Urinal Urinal # Bowel Movements 2 - Labs CBC & Chem 7: 05/04/16 08:31 05/04/16 08:31 Labs: Abnormal Lab Results - Last 24 Hours (Table) 05/03/16 05/04/16 05/04/16 Range/Units 09:18 00:08 08:31 RBC 2.84 L 3.04 L (4.30-5.90) m/uL Hgb 9.0 L D 9.4 L (13.0-17.5) gm/dL Hct 25.4 L 27.2 L (39.0-53.0) % Chloride (98-107) mmol/L BUN (9-20) mg/dL Creatinine (0.66-1.25) mg/dL Calcium (8.4-10.2) mg/dL AST (17-59) U/L Total Protein (6.3-8.2) g/dL Albumin (3.5-5.0) g/dL Urine Protein (Negative) Urine Blood (Negative) Crossmatch See Detail 05/04/16 05/04/16 Range/Units 08:31 12:22 RBC (4.30-5.90) m/uL Hgb (13.0-17.5) gm/dL Hct (39.0-53.0) % Chloride 112 H (98-107) mmol/L BUN 30 H (9-20) mg/dL Creatinine 2.45 H (0.66-1.25) mg/dL Calcium 8.2 L (8.4-10.2) mg/dL AST 71 H (17-59) U/L Total Protein 5.6 L (6.3-8.2) g/dL Albumin 2.7 L (3.5-5.0) g/dL Urine Protein Trace H (Negative) Urine Blood Moderate H (Negative) Crossmatch Assessment and Plan Plan: The patient's blood loss anemia is a consultation of his Lovenox treatment. His anemia has improved since his Lovenox dose has been changed.
[2016-05-04] MEDS: DEXTROSE 5%-0.45% NACL 1,000 ML IV SCH (14:12)
[2016-05-04] MEDS: FINASTERIDE 5 MG TAB PO SCH (14:12)
--- NOTE | 2016-05-04 18:10 | P.PN ---
Subjective Principal diagnosis: Diverticulitis and cholelithiasis Patient is a 65-year-old male, patient of Dr. Rausch. He has a known history of DVT and multiple PE, obstructive sleep apnea, hypertension, chronic kidney disease, perforated diverticulitis with abscess. Patient presents to the hospital today for laparoscopic cholecystectomy and laparoscopic assisted lower anterior resection. We are consulted for medical management. On review of systems: Patient denies any chest pain, shortness of breath, nausea or vomiting. Patient was having bowel movements prior to surgery. Denies any difficulty urinating prior to surgery. Patient had some bleeding from his wound was anemia requiring red blood cell transfusion today Objective - Vital Signs Vital signs: Vital Signs Temp 97.5 F L 05/04/16 16:13 Pulse 82 05/04/16 16:13 Resp 20 05/04/16 16:13 BP 139/86 05/04/16 16:13 Pulse Ox 96 05/04/16 16:13 Intake & Output 05/03/16 05/04/16 05/04/16 18:59 06:59 18:59 Intake Total 1340 Output Total 300 2400 1000 Balance 1040 -2400 -1000 Weight 106.594 kg Intake: Oral 720 Blood Product 620 Rc As-1 Unit 310 [id number] Rc As-1 Unit 310 [id number] Output: Urine 300 2400 1000 Straight 1000 Other: Voiding Method Urinal Indwelling Catheter # Bowel Movements 2 - Exam In general patient is alert and oriented 3 in no apparent distress HEENT head normocephalic and atraumatic Neck is supple no JVD no goiter no lymphadenopathy Chest exam reveals a few scattered rhonchi no wheezing Cardiac exam reveals regular heart sounds no murmurs Abdomen is soft nontender no organomegaly Extremity exam reveals no edema no cyanosis or clubbing - Labs CBC & Chem 7: 05/04/16 08:31 05/04/16 08:31 Labs: Abnormal Lab Results - Last 24 Hours (Table) 05/03/16 05/04/16 05/04/16 Range/Units 09:18 00:08 08:31 RBC 2.84 L 3.04 L (4.30-5.90) m/uL Hgb 9.0 L D 9.4 L (13.0-17.5) gm/dL Hct 25.4 L 27.2 L (39.0-53.0) % Chloride (98-107) mmol/L BUN (9-20) mg/dL Creatinine (0.66-1.25) mg/dL Calcium (8.4-10.2) mg/dL AST (17-59) U/L Total Protein (6.3-8.2) g/dL Albumin (3.5-5.0) g/dL Urine Protein (Negative) Urine Blood (Negative) Crossmatch See Detail 05/04/16 05/04/16 Range/Units 08:31 12:22 RBC (4.30-5.90) m/uL Hgb (13.0-17.5) gm/dL Hct (39.0-53.0) % Chloride 112 H (98-107) mmol/L BUN 30 H (9-20) mg/dL Creatinine 2.45 H (0.66-1.25) mg/dL Calcium 8.2 L (8.4-10.2) mg/dL AST 71 H (17-59) U/L Total Protein 5.6 L (6.3-8.2) g/dL Albumin 2.7 L (3.5-5.0) g/dL Urine Protein Trace H (Negative) Urine Blood Moderate H (Negative) Crossmatch Assessment and Plan Plan: 1. Diverticulitis with previous history of perforated diverticulitis, cholelithiasis and umbilical hernia: Patient is postop day #1 status post endoscopic cholecystectomy, laparoscopic assisted lower anterior resection and umbilical hernia repair. Patient tolerated surgery well. Continue with postop orders 2. Episode of respiratory distress after IV Dilaudid. Patient was given Narcan. Symptoms have resolved. Anesthesia is involved in pain management. Patient is now arousable. 3. History of multiple PEs and DVT of the left leg diagnosed in July 2015: On Coumadin at home. 4. IgA nephropathy and chronic kidney disease stage III 5. Essential hypertension: Resume lisinopril and metoprolol 6. Hyperlipidemia resume Lipitor 7. History of obstructive sleep apnea 8. Previous history of abdominal abscess treated with antibiotics 9. Chronic renal failure creatinine stable at baseline Will monitor closely 10. Abdominal wound bleeding with anemia requiring red blood cell transfusion, resolved hemoglobin is stable at this time 11. Urinary retention Daugherty catheter was inserted, Proscar was added to regimen , will follow closely
--- NOTE | 2016-05-04 20:27 | PN ---
Patient is seen for followup for acute kidney injury on top of chronic kidney disease. He is currently complaining of significant pain, especially on urination. Daugherty catheter was discontinued. 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 Patient also states that he has had difficulty in passing urine, and therefore a bladder scan has been ordered. His renal function has been improving, with serum creatinine now down to 2.45 from 2.7 yesterday. Hemoglobin was down to 6.4 g/dL on 05/03, and patient has been transfused packed RBCs. Current hemoglobin at 9.0 g/dL. 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 Patient is afebrile. EXAMINATION OF THE HEART: S1 and S2. EXAMINATION OF LUNGS: Decreased breath sounds at the bases. ABDOMEN: Soft, tender, with abdominal binder. Examination of lower extremities shows edema 1+ bilaterally. FERMENTER exam is grossly intact. Labs show sodium 140, potassium 4.7; BUN 30, serum creatinine 2.45. Hemoglobin 9.4 g/dL. ASSESSMENT: 1. Acute kidney injury secondary to anemia as well as use of non-steroidal anti-inflammatory drugs, currently improving. 2. Chronic kidney disease, stage IIIB, secondary to IgA nephropathy, status post steroids, which he did not tolerate very well. Baseline creatinine about 2.2. 3. Perforated diverticulitis, status post laparoscopic cholecystectomy and umbilical hernia repair. PLAN: Check UA. 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 I will try to hold off on reinsertion of Daugherty catheter unless he has a significant residual.
[2016-05-04] MEDS: LISINOPRIL 10 MG TAB PO SCH (21:58)
[2016-05-05] MEDS: DEXTROSE 5%-0.45% NACL 1,000 ML IV SCH ×2 (02:44→16:50)
[2016-05-05] MEDS: MODAFINIL 200 MG TAB PO SCH ×2 (06:00→13:45)
[2016-05-05] MEDS: METOCLOPRAMIDE 5 MG/ML 2 ML VIAL IVP SCH ×4 (06:00→23:20)
[2016-05-05] MEDS: TAMSULOSIN 0.4 MG CAP.ER.24H PO SCH ×2 (08:36→21:11)
[2016-05-05] MEDS: ENOXAPARIN 40 MG/0.4 ML SYRINGE SQ SCH (08:36)
[2016-05-05] MEDS: PREGABALIN 75 MG CAP PO SCH ×2 (08:36→21:11)
[2016-05-05] MEDS: ALVIMOPAN 12 MG CAPSULE PO SCH ×2 (08:36→21:11)
[2016-05-05] MEDS: SODIUM BICARBONATE TAB 650 MG TAB PO SCH ×2 (08:36→21:11)
[2016-05-05] MEDS: FAMOTIDINE 20 MG/2 ML VIAL IV SCH (08:37)
[2016-05-05] MEDS: ALPRAZolam 0.25 MG TAB PO SCH ×3 (08:37→23:46)
[2016-05-05] MEDS: METOPROLOL TARTRATE 50 MG TAB PO SCH ×2 (08:37→21:11)
[2016-05-05] MEDS: ATORVASTATIN 20 MG TAB PO SCH (08:37)
[2016-05-05] MEDS: FINASTERIDE 5 MG TAB PO SCH (08:37)
[2016-05-05 10:42] LABS: Calcium 8.1 mg/dL (8.4-10.2)
[2016-05-05 10:52] LABS: Basophils % (A) 0 %; CH 31.1; CHCM 34.4; Eosinophils # (A) 0.3 k/uL (0-0.7); Eosinophils % (A) 4 %; HCT 25.7 % (39.0-53.0); HDW 3.31; HGB 8.6 gm/dL (13.0-17.5); Luc # (Auto) 0.16; Luc % (Auto) 2; Lymphocytes # (A) 1.4 k/uL (1.0-4.8); Lymphocytes % (A) 21 %; MCH 30.5 pg (25.0-35.0); MCHC 33.4 g/dL (31.0-37.0); MCV 91.2 fL (80.0-100.0); Mean Platelet Volume 7.2; Monocytes # (A) 0.5 k/uL (0-1.0); Monocytes % (A) 7 %; Neutrophils # (A) 4.6 k/uL (1.3-7.7); Neutrophils % (A) 65 %; RBC 2.81 m/uL (4.30-5.90); RDW 15.2 % (11.5-15.5); WBC (Perox) 7.34
[2016-05-05] MEDS: HYDROcodone/APAP 7.5-325MG 1 EACH TAB PO PRN ×3 (12:11→23:12)
--- NOTE | 2016-05-05 12:26 | P.PN ---
Subjective Patient presents to the hospital today for laparoscopic cholecystectomy and laparoscopic assisted lower anterior resection. Patient's pain is controlled. He is really requiring the [place] pump. He is will be started on a soft diet this afternoon per surgery. Patient did have the Daugherty catheter reinserted yesterday for urinary retention. He denies any chest pain or shortness of breath. Denies any nausea or vomiting. He did have a bowel movement. Objective - Vital Signs Vital signs: Vital Signs Temp 98.3 F 05/05/16 07:44 Pulse 87 05/05/16 07:44 Resp 18 05/05/16 07:44 BP 129/76 05/05/16 10:56 Pulse Ox 96 05/05/16 07:44 Intake & Output 05/04/16 05/05/16 05/05/16 18:59 06:59 18:59 Intake Total 300 Output Total 1000 900 Balance -1000 -600 Weight 105.4 kg Intake: Oral 300 Output: Urine 1000 900 Straight 1000 Other: Voiding Method Indwelling Catheter Indwelling Catheter Indwelling Catheter # Bowel Movements 2 - Exam Head normocephalic Neck supple Lungs clear to auscultation bilaterally no wheezing or crackles Heart regular rate and rhythm S1-S2, no rub or gallop Abdomen is soft and distended hypoactive bowel sounds. Abdominal binder in place Extremities no edema Neuro alert and orientated to 3 - Labs CBC & Chem 7: 05/05/16 09:43 05/05/16 09:42 Labs: Abnormal Lab Results - Last 24 Hours (Table) 05/04/16 05/05/16 05/05/16 Range/Units 12:22 09:42 09:43 RBC 2.81 L (4.30-5.90) m/uL Hgb 8.6 L (13.0-17.5) gm/dL Hct 25.7 L (39.0-53.0) % Chloride 110 H (98-107) mmol/L BUN 27 H (9-20) mg/dL Creatinine 2.31 H (0.66-1.25) mg/dL Calcium 8.1 L (8.4-10.2) mg/dL Urine Protein Trace H (Negative) Urine Blood Moderate H (Negative) Microbiology - Last 24 Hours (Table) 05/04/16 12:22 Urine Culture - Preliminary Urine,Voided Assessment and Plan Plan: 1. Diverticulitis with previous history of perforated diverticulitis, cholelithiasis and umbilical hernia: Patient is status post laparoscopic cholecystectomy, laparoscopic assisted lower anterior resection and umbilical hernia repair. Patient tolerated surgery well. 2. Episode of respiratory distress after IV Dilaudid. Patient was given Narcan. Symptoms have resolved. 3. History of multiple PEs and DVT of the left leg diagnosed in July 2015: On Coumadin at home. 4. IgA nephropathy and chronic kidney disease stage III 5. Essential hypertension: Resume lisinopril and metoprolol. Continue hydralazine when necessary. Elevated blood pressure this morning of 173/93. Repeat blood pressures 129/76 6. Hyperlipidemia resume Lipitor 7. History of obstructive sleep apnea 8. Previous history of abdominal abscess treated with antibiotics 9. Anemia likely acute blood loss anemia due to abdominal wound bleeding. Patient did require blood transfusion. Monitor hemoglobin. Lovenox dose was decreased to 40 mg subcu daily 10. Urinary retention. Daugherty catheter reinserted yesterday. Continue Flomax and Proscar 11. Acute kidney injury secondary to anemia and NSAIDs. Nephrology is following. Creatinine down to 2.31.
--- NOTE | 2016-05-05 14:06 | PN ---
Patient is seen for followup for acute kidney injury on top of chronic kidney disease. He did have significant urine retention yesterday with about 1000 mL noted on initial Daugherty catheter placement. His pain is significantly improved. Patient is much more awake and comfortable today. Blood pressure is 129/76, heart rate 87 per minute. He is afebrile. Examination of the heart, S1 and S2. Examination of the lungs, decreased breath sounds in the bases. Abdomen is soft, nontender. Examination of the lower extremities, trace edema bilaterally. PSYCHIATRIC CLINICAL NURSE SPECIALIST exam is grossly intact. Labs show sodium 140, potassium 4.0, BUN 27, creatinine 2.3, hemoglobin 8.6 g/dL. ASSESSMENT: 1. Acute kidney injury. No significant urine retention, currently with indwelling Daugherty catheter. 2. Status post laparoscopic cholecystectomy, repair of umbilicus hernia, currently doing better than yesterday. 3. Urine retention now with indwelling Daugherty catheter. 4. Anemia, no obvious bleeding noted, maintained on Aranesp. 5. Chronic kidney disease stage III secondary to IgA nephropathy, status post prednisone, stage IIIB with baseline creatinine about 2.2. PLAN: Encourage increased oral intake. May continue with the fluids for now. Repeat labs in a.m. May continue with the KRISTEN inhibitors as well.
--- NOTE | 2016-05-05 16:23 | P.PN ---
Subjective Principal diagnosis: Perforated diverticulitis Patient is a 65-year-old white male with medical history significant for perforated diverticulitis and cholelithiasis presenting to the hospital for laparoscopic cholecystectomy and laparoscopic assisted lower anterior resection. Patient is feeling better. Denies nausea, vomiting, shortness of breath, or chest pain. Incisional pain controlled. Passing flatus with bowel movements. Daugherty catheter has been inserted for urinary retention. Urine output adequate. Passing flatus with bowel movements. Afebrile. No evidence of leukocytosis. Hemoglobin stable at 8.6. Creatinine improved. Objective - Vital Signs Vital signs: Vital Signs Temp 96.6 F L 05/05/16 15:35 Pulse 96 05/05/16 15:35 Resp 19 05/05/16 15:35 BP 173/87 05/05/16 15:35 Pulse Ox 98 05/05/16 15:35 Intake & Output 05/04/16 05/05/16 05/05/16 18:59 06:59 18:59 Intake Total 300 Output Total 1000 900 475 Balance -1000 -600 -475 Weight 105.4 kg Intake: Oral 300 Output: Urine 1000 900 475 Straight 1000 Other: Voiding Method Indwelling Catheter Indwelling Catheter Indwelling Catheter # Bowel Movements 2 - Exam GENERAL: Pt is awake and alert, lying in bed, in no acute distress. LUNGS: Breath sounds clear to auscultation bilaterally. No wheezes, rales, or rhonchi. HEART: Heart S1, S2, no S3 or S4. Regular rate and rhythm. No murmurs, rubs or gallops. ABDOMEN: Soft, mild incisional tenderness, nondistended, active bowel sounds. No guarding, no rebound. Abdominal dressing dry and intact. Abdominal binder in place. - Labs CBC & Chem 7: 05/05/16 09:43 05/05/16 09:42 Labs: Abnormal Lab Results - Last 24 Hours (Table) 05/05/16 05/05/16 Range/Units 09:42 09:43 RBC 2.81 L (4.30-5.90) m/uL Hgb 8.6 L (13.0-17.5) gm/dL Hct 25.7 L (39.0-53.0) % Chloride 110 H (98-107) mmol/L BUN 27 H (9-20) mg/dL Creatinine 2.31 H (0.66-1.25) mg/dL Calcium 8.1 L (8.4-10.2) mg/dL Microbiology - Last 24 Hours (Table) 05/04/16 12:22 Urine Culture - Preliminary Urine,Voided Assessment and Plan Plan: Impression: 1. Status post laparoscopic cholecystectomy for cholelithiasis on 04/29/2016. 2. Status post laparoscopic-assisted low anterior resection on 04/29/2016. 3. Umbilical hernia. 4. Diverticulitis with history of perforated diverticulitis. 5. Acute blood loss anemia requiring 2 units of PRBC suspect secondary to Lovenox. Hemoglobin stable at 8.6. Plan: 1. Advance diet to soft. Transition patient to oral pain medication. Continue supportive treatment and pain management. Continue local wound care. Continue GI and DVT prophylaxis. Increase activity. Continue incentive spirometry 10 times an hour while awake. Continue to follow with medical team. Repeat CBC and BMP in a.m. Discharge plan for ECF tomorrow pending clinical course. The above impression and plan have been discussed and directed by Dr. Camejo. Nayla PERALTA acting as scribe for Dr. Camejo.
[2016-05-05] MEDS: LISINOPRIL 10 MG TAB PO SCH (21:11)
[2016-05-06] MEDS: MODAFINIL 200 MG TAB PO SCH ×2 (06:02→15:10)
[2016-05-06] MEDS: HYDROcodone/APAP 7.5-325MG 1 EACH TAB PO PRN ×4 (06:02→19:47)
[2016-05-06] MEDS: METOCLOPRAMIDE 5 MG/ML 2 ML VIAL IVP SCH ×4 (06:07→23:06)
[2016-05-06] MEDS: DEXTROSE 5%-0.45% NACL 1,000 ML IV SCH ×2 (06:07→23:10)
[2016-05-06] MEDS: PREGABALIN 75 MG CAP PO SCH ×2 (08:33→21:34)
[2016-05-06] MEDS: ALPRAZolam 0.25 MG TAB PO SCH (08:33)
[2016-05-06] MEDS: ENOXAPARIN 40 MG/0.4 ML SYRINGE SQ SCH (08:33)
[2016-05-06] MEDS: SODIUM BICARBONATE TAB 650 MG TAB PO SCH ×2 (08:34→21:34)
[2016-05-06] MEDS: ALVIMOPAN 12 MG CAPSULE PO SCH (08:34)
[2016-05-06] MEDS: TAMSULOSIN 0.4 MG CAP.ER.24H PO SCH ×2 (08:34→21:34)
[2016-05-06] MEDS: FAMOTIDINE 20 MG/2 ML VIAL IV SCH (08:34)
[2016-05-06] MEDS: FINASTERIDE 5 MG TAB PO SCH (08:34)
[2016-05-06] MEDS: ATORVASTATIN 20 MG TAB PO SCH (08:34)
[2016-05-06] MEDS: METOPROLOL TARTRATE 50 MG TAB PO SCH ×2 (08:34→21:34)
[2016-05-06 09:38] LABS: CH 31.1; CHCM 34.6; HDW 3.42; HGB 8.3 gm/dL (13.0-17.5); MCH 31.3 pg (25.0-35.0); MCHC 34.6 g/dL (31.0-37.0); MCV 90.6 fL (80.0-100.0); Mean Platelet Volume 8.3; Poikilocytosis Slight; RBC 2.65 m/uL (4.30-5.90); RDW 14.9 % (11.5-15.5); WBC 7.2 k/uL (3.8-10.6)
[2016-05-06 09:42] LABS: Potassium 4.1 mmol/L (3.5-5.1)
--- NOTE | 2016-05-06 13:22 | P.PN ---
Subjective Patient presents to the hospital for laparoscopic cholecystectomy and laparoscopic assisted lower anterior resection. Pain controlled on oral pain medications. Still has Daugherty catheter in place due to urinary retention. He' ll likely need this for about one week. Surgery has cleared patient for discharge. However for monitoring patient's anticoagulation would recommend that he be discharged on Monday. Patient has had bowel movements. Tolerating soft diet. Denies any chest pain or shortness of breath. Objective - Vital Signs Vital signs: Vital Signs Temp 97.6 F 05/06/16 07:00 Pulse 80 05/06/16 07:00 Resp 16 05/06/16 07:00 BP 166/90 05/06/16 07:00 Pulse Ox 95 05/06/16 07:00 Intake & Output 05/05/16 05/06/16 05/06/16 18:59 06:59 18:59 Output Total 475 525 Balance -475 -525 Weight 103.5 kg Output: Urine 475 525 Other: Voiding Method Indwelling Catheter Indwelling Catheter Indwelling Catheter # Voids 1 - Exam Head normocephalic Neck supple Lungs clear to auscultation bilaterally no wheezing or crackles Heart regular rate and rhythm S1-S2, no rub or gallop Abdomen is soft and distended hypoactive bowel sounds. Abdominal binder in place Extremities no edema Neuro alert and orientated to 3 - Labs CBC & Chem 7: 05/06/16 09:13 05/06/16 09:13 Labs: Abnormal Lab Results - Last 24 Hours (Table) 05/06/16 05/06/16 Range/Units 09:13 09:13 RBC 2.65 L (4.30-5.90) m/uL Hgb 8.3 L (13.0-17.5) gm/dL Hct 24.0 L (39.0-53.0) % Chloride 109 H (98-107) mmol/L BUN 30 H (9-20) mg/dL Creatinine 2.29 H (0.66-1.25) mg/dL Glucose 102 H (74-99) mg/dL Calcium 8.0 L (8.4-10.2) mg/dL Microbiology - Last 24 Hours (Table) 05/04/16 12:22 Urine Culture - Final Urine,Voided Assessment and Plan Plan: 1. Diverticulitis with previous history of perforated diverticulitis, cholelithiasis and umbilical hernia: Patient is status post laparoscopic cholecystectomy, laparoscopic assisted lower anterior resection and umbilical hernia repair. Patient tolerated surgery well. Patient is tolerating diet. Pain is controlled on oral meds. 2. Episode of respiratory distress after IV Dilaudid. Patient was given Narcan. Symptoms have resolved. 3. History of multiple PEs and DVT of the left leg diagnosed in July 2015: Resume patient's Coumadin. Continue Lovenox until INR is therapeutic greater than or equal to 2. Recommend monitoring patient's PT/INR in hospital until Monday. Recommend holding off on discharge so patient can be closely monitored for any bleeding. 4. IgA nephropathy and chronic kidney disease stage III 5. Essential hypertension: Resume lisinopril and metoprolol. Continue hydralazine when necessary. Elevated blood pressure this morning of 173/93. Repeat blood pressures 129/76 6. Hyperlipidemia resume Lipitor 7. History of obstructive sleep apnea 8. Previous history of abdominal abscess treated with antibiotics 9. Anemia likely acute blood loss anemia due to abdominal wound bleeding. Patient did require blood transfusion. Monitor hemoglobin. Lovenox dose was decreased to 40 mg subcu daily 10. Urinary retention. Daugherty catheter reinserted. Continue Flomax and Proscar. 11. Acute kidney injury secondary to anemia and NSAIDs. Nephrology is following. Creatinine down to 2.29.
--- NOTE | 2016-05-06 14:25 | P.PN ---
Subjective Principal diagnosis: Perforated diverticulitis Patient is a 65-year-old white male with medical history significant for perforated diverticulitis and cholelithiasis presenting to the hospital for laparoscopic cholecystectomy and laparoscopic assisted lower anterior resection on 04/29/2016. Patient is doing well. Denies nausea, vomiting, shortness of breath, or chest pain. Incisional pain controlled. Passing flatus with bowel movements. Tolerating soft diet. Daugherty catheter remains in place for urinary retention. Urine output adequate. Afebrile. No evidence of leukocytosis. Hemoglobin stable at 8.3. Creatinine stable at 2.29. Objective - Vital Signs Vital signs: Vital Signs Temp 97.6 F 05/06/16 07:00 Pulse 80 05/06/16 07:00 Resp 16 05/06/16 07:00 BP 166/90 05/06/16 07:00 Pulse Ox 95 05/06/16 07:00 Intake & Output 05/05/16 05/06/16 05/06/16 18:59 06:59 18:59 Output Total 475 525 Balance -475 -525 Weight 103.5 kg Output: Urine 475 525 Other: Voiding Method Indwelling Catheter Indwelling Catheter Indwelling Catheter # Voids 1 - Exam GENERAL: Pt is awake and alert, lying in bed, in no acute distress. LUNGS: Breath sounds clear to auscultation bilaterally. No wheezes, rales, or rhonchi. HEART: Heart S1, S2, no S3 or S4. Regular rate and rhythm. No murmurs, rubs or gallops. ABDOMEN: Soft, mild incisional tenderness, nondistended, active bowel sounds. No guarding, no rebound. Abdominal incision clean and dry. No evidence of erythema or drainage. Abdominal binder in place. - Labs CBC & Chem 7: 05/06/16 09:13 05/06/16 09:13 Labs: Abnormal Lab Results - Last 24 Hours (Table) 05/06/16 05/06/16 Range/Units : 09:13 RBC 2.65 L (4.30-5.90) m/uL Hgb 8.3 L (13.0-17.5) gm/dL Hct 24.0 L (39.0-53.0) % Chloride 109 H (98-107) mmol/L BUN 30 H (9-20) mg/dL Creatinine 2.29 H (0.66-1.25) mg/dL Glucose 102 H (74-99) mg/dL Calcium 8.0 L (8.4-10.2) mg/dL Microbiology - Last 24 Hours (Table) 05/04/16 12:22 Urine Culture - Final Urine,Voided Assessment and Plan Plan: Impression: 1. Status post laparoscopic cholecystectomy for cholelithiasis on 04/29/2016. 2. Status post laparoscopic-assisted low anterior resection on 04/29/2016. 3. Umbilical hernia. 4. Diverticulitis with history of perforated diverticulitis. 5. Acute blood loss anemia requiring 2 units of PRBC suspect secondary to Lovenox. Hemoglobin stable at 8.3. Plan: 1. Continue soft diet. Continue local wound care. Continue current medications. Continue supportive treatment and pain management. Continue GI and DVT prophylaxis. Increase activity. Continue incentive spirometry 10 times an hour while awake. Continue to follow with medical team. Repeat CBC and BMP in a.m. Discharge plan for ECF Monday per medical team. The above impression and plan have been discussed and directed by Dr. Camejo. Nayla PERALTA acting as scribe for Dr. Camejo.
[2016-05-06] MEDS: hydrALAZINE HCL 20 MG/ML 1 ML VIAL IVP PRN (16:06)
[2016-05-06] MEDS ORDERED: ALPRAZolam 0.25 MG TAB PO PRN (16:18)
[2016-05-06] MEDS ORDERED: WARFARIN 1 MG TAB PO SCH (18:00)
--- NOTE | 2016-05-06 19:15 | PN ---
Patient is seen for follow-up for acute kidney injury on top of chronic kidney disease. His renal function continues to improve. Patient is currently awake, comfortable. He is not in acute distress. He looks much better. His abdominal pain has resolved with Daugherty catheter placement as he had about 1000 mL of urine retention. On examination, blood pressure is 180/93, previous blood pressure was 166/90. He is afebrile. Examination of the heart S1 and S2. Examination of the lungs: Bilateral breath sounds are heard. ABDOMEN: Soft, nontender. Examination of lower extremities shows no significant edema. L[employer] exam is grossly intact. Labs revealed sodium 141, potassium 4.1, BUN 30, serum creatinine 2.29. Hemoglobin at 8.3 g/dL. ASSESSMENT: 1. Acute kidney injury, acute tubular necrosis, currently improved. Patient also had urine retention with about 1000 mL of urine on initial Daugherty catheter placement and bladder scan. 2. Status post laparoscopic cholecystectomy, repair of umbilical hernia, currently doing much better. 3. Anemia with no obvious bleeding, maintained on Aranesp. 4. Chronic kidney disease stage III secondary to IgA nephropathy status post prednisone with baseline creatinine about 2.2. 5. Hypertension, uncontrolled, maintained on Lisinopril. The Hydralazine is p.r.n. PLAN: Encourage increased oral intake. Add calcium channel blockers for hypertension as blood pressure remains uncontrolled.
[2016-05-06] MEDS: amLODIPine 5 MG TAB PO SCH (21:34)
[2016-05-06] MEDS: LISINOPRIL 10 MG TAB PO SCH (21:34)
[2016-05-07] MEDS: METOCLOPRAMIDE 5 MG/ML 2 ML VIAL IVP SCH ×4 (05:36→22:47)
[2016-05-07] MEDS: MODAFINIL 200 MG TAB PO SCH ×2 (06:16→14:33)
[2016-05-07] MEDS: HYDROcodone/APAP 7.5-325MG 1 EACH TAB PO PRN ×4 (06:17→21:03)
[2016-05-07] MEDS: FINASTERIDE 5 MG TAB PO SCH (08:09)
[2016-05-07] MEDS: SODIUM BICARBONATE TAB 650 MG TAB PO SCH ×2 (08:09→20:55)
[2016-05-07] MEDS: ENOXAPARIN 40 MG/0.4 ML SYRINGE SQ SCH (08:10)
[2016-05-07] MEDS: METOPROLOL TARTRATE 50 MG TAB PO SCH ×2 (08:10→20:55)
[2016-05-07] MEDS: ATORVASTATIN 20 MG TAB PO SCH (08:10)
[2016-05-07] MEDS: TAMSULOSIN 0.4 MG CAP.ER.24H PO SCH ×2 (08:10→20:55)
[2016-05-07] MEDS: PREGABALIN 75 MG CAP PO SCH ×2 (08:10→20:55)
[2016-05-07] MEDS: amLODIPine 5 MG TAB PO SCH (08:10)
[2016-05-07] MEDS: FAMOTIDINE 20 MG/2 ML VIAL IV SCH (08:10)
[2016-05-07 08:33] LABS: Basophils % (A) 0 %; CH 31.5; CHCM 34.6; Eosinophils # (A) 0.4 k/uL (0-0.7); Eosinophils % (A) 5 %; HCT 27.9 % (39.0-53.0); HDW 3.42; HGB 9.6 gm/dL (13.0-17.5); Luc # (Auto) 0.14; Luc % (Auto) 2; Lymphocytes # (A) 1.4 k/uL (1.0-4.8); Lymphocytes % (A) 18 %; MCH 31.6 pg (25.0-35.0); MCHC 34.5 g/dL (31.0-37.0); MCV 91.6 fL (80.0-100.0); Mean Platelet Volume 7.8; Monocytes # (A) 0.4 k/uL (0-1.0); Monocytes % (A) 5 %; Neutrophils # (A) 5.3 k/uL (1.3-7.7); Neutrophils % (A) 70 %; Poikilocytosis Slight; RBC 3.04 m/uL (4.30-5.90); RDW 14.9 % (11.5-15.5); WBC 7.6 k/uL (3.8-10.6); WBC (Perox) 8.37
[2016-05-07 08:48] LABS: Calcium 8.3 mg/dL (8.4-10.2); Potassium 4.3 mmol/L (3.5-5.1); Total Bilirubin 1.1 mg/dL (0.2-1.3); Total Protein 5.8 g/dL (6.3-8.2)
[2016-05-07 08:49] LABS: INR 1.1 (<1.1); Prothrombin Time 10.9 sec (9.0-12.0)
--- NOTE | 2016-05-07 10:59 | P.PN ---
Progress Note - Text The patient feels well today. He is afraid to remove his Daugherty. He states he has chronic issues with urination. He has seen Dr. Elkins the past. On exam his vital signs are stable. His abdomen soft. His incision site is clean dry intact. The ecchymosis around his incision is resolving. The patient is remaining in the hospital for his INR to become therapeutic. We will consult Dr. Mcfadden to see him regarding his dysuria.
[2016-05-07] MEDS: DEXTROSE 5%-0.45% NACL 1,000 ML IV SCH (11:25)
--- NOTE | 2016-05-07 12:03 | P.PN ---
Subjective Patient is seen in follow-up for acute kidney injury on chronic kidney disease. Patient has chronic kidney disease stage IIIB secondary to IgA nephropathy. Patient has completed a six-month course of prednisone. GFR is at baseline creatinine near 2.06. Currently sitting up in chair. Denies chest pain or shortness of breath. He's been ambulating. No vomiting or diarrhea. Oral intake is good. He has a Daugherty catheter in place and is nonoliguric. Vital signs are stable. General: The patient appeared well nourished and normally developed. HEENT: Head exam is unremarkable. Neck is without jugular venous distension. LUNGS: Lungs are clear to auscultation and percussion. Breath sounds decreased. HEART: Rate and Rhythm are regular. First and second heart sounds normal. No murmurs, rubs or gallops. ABDOMEN: Abdominal exam reveals normal bowel sounds. Non-tender and non- distended. No evidence of peritonitis. EXTREMITITES: No clubbing, cyanosis, or edema. Objective - Vital Signs Vital signs: Vital Signs Temp 97.3 F L 05/07/16 07:00 Pulse 82 05/07/16 07:00 Resp 16 05/07/16 07:00 BP 148/85 05/07/16 07:00 Pulse Ox 95 05/07/16 09:21 Intake & Output 05/06/16 05/07/16 05/07/16 18:59 06:59 18:59 Output Total 900 1400 300 Balance -900 -1400 -300 Weight 108.5 kg Output: Urine 900 1400 300 Other: Voiding Method Indwelling Catheter Indwelling Catheter Indwelling Catheter # Voids 1 - Labs CBC & Chem 7: 05/07/16 07:57 05/07/16 07:57 Labs: Abnormal Lab Results - Last 24 Hours (Table) 05/07/16 05/07/16 Range/Units 07:57 07:57 RBC 3.04 L (4.30-5.90) m/uL Hgb 9.6 L (13.0-17.5) gm/dL Hct 27.9 L (39.0-53.0) % Chloride 110 H (98-107) mmol/L BUN 30 H (9-20) mg/dL Creatinine 2.06 H (0.66-1.25) mg/dL Glucose 123 H (74-99) mg/dL Calcium 8.3 L (8.4-10.2) mg/dL Total Protein 5.8 L (6.3-8.2) g/dL Albumin 2.8 L (3.5-5.0) g/dL Assessment and Plan Plan: Assessment: #1. Nonoliguric acute kidney injury mostly prerenal in nature secondary to acute anemia and NSAIDs. Resolved. #2. Acute postoperative anemia with hemoglobin 6.4 status post packed red blood cell transfusions. Improved. #3. Metabolic acidosis secondary to acute kidney injury. stable. #4. Chronic kidney disease stage IIIB secondary to IgA nephropathy with baseline creatinine near 2.2. He was treated with 6 month course of steroids. #5. Perforated diverticulitis status post umbilical hernia repair and laparoscopic cholecystectomy cystectomy. Plan:. Hep-Lock IV fluids. Encourage oral intake. Avoid nephrotoxic agents and hypotensive episodes. Maintain oral sodium bicarbonate supplementation.
[2016-05-07 12:21] VITALS: BMI 32.4
--- NOTE | 2016-05-07 14:39 | P.PN ---
Subjective No events overnight Objective - Vital Signs Vital signs: Vital Signs Temp 97.3 F L 05/07/16 07:00 Pulse 82 05/07/16 07:00 Resp 16 05/07/16 07:00 BP 148/85 05/07/16 07:00 Pulse Ox 95 05/07/16 09:21 Intake & Output 05/06/16 05/07/16 05/07/16 18:59 06:59 18:59 Output Total 900 1400 300 Balance -900 -1400 -300 Weight 108.5 kg 108.5 kg Output: Urine 900 1400 300 Other: Voiding Method Indwelling Catheter Indwelling Catheter Indwelling Catheter # Voids 1 - Exam General: The patient is awake and alert, in no distress Eye: there is normal conjunctiva bilaterally. Neck: The neck is supple, there is no JVD. Cardiovascular: Normal S1-S2, no S3-S4, no murmurs. Respiratory: Lungs clear to auscultation bilaterally Gastrointestinal: Abdomen is soft, nontender Musculoskeletal: There is no pedal edema. Neurological:. Speech is normal. Skin: Skin is warm and dry - Labs CBC & Chem 7: 05/07/16 07:57 05/07/16 07:57 Labs: Abnormal Lab Results - Last 24 Hours (Table) 05/07/16 05/07/16 Range/Units 07:57 07:57 RBC 3.04 L (4.30-5.90) m/uL Hgb 9.6 L (13.0-17.5) gm/dL Hct 27.9 L (39.0-53.0) % Chloride 110 H (98-107) mmol/L BUN 30 H (9-20) mg/dL Creatinine 2.06 H (0.66-1.25) mg/dL Glucose 123 H (74-99) mg/dL Calcium 8.3 L (8.4-10.2) mg/dL Total Protein 5.8 L (6.3-8.2) g/dL Albumin 2.8 L (3.5-5.0) g/dL Assessment and Plan Plan: 1. Diverticulitis with previous history of perforated diverticulitis, cholelithiasis and umbilical hernia: Patient is status post laparoscopic cholecystectomy, laparoscopic assisted lower anterior resection and umbilical hernia repair. Patient tolerated surgery well. Patient is tolerating diet. Pain is controlled on oral meds. 2. Episode of respiratory distress after IV Dilaudid. Patient was given Narcan. Symptoms have resolved. 3. History of multiple PEs and DVT of the left leg diagnosed in July 2015: Resume patient's Coumadin. Continue Lovenox until INR is therapeutic greater than or equal to 2. Recommend monitoring patient's PT/INR in hospital until Monday. Recommend holding off on discharge so patient can be closely monitored for any bleeding. 4. IgA nephropathy and chronic kidney disease stage III 5. Essential hypertension: Resume lisinopril and metoprolol. Continue hydralazine when necessary. Elevated blood pressure this morning of 173/93. Repeat blood pressures 129/76 6. Hyperlipidemia resume Lipitor 7. History of obstructive sleep apnea 8. Previous history of abdominal abscess treated with antibiotics 9. Anemia likely acute blood loss anemia due to abdominal wound bleeding. Patient did require blood transfusion. Monitor hemoglobin. Lovenox dose was decreased to 40 mg subcu daily 10. Urinary retention. Daugherty catheter reinserted. Continue Flomax and Proscar. Urology consulted 11. Acute kidney injury secondary to anemia and NSAIDs. Nephrology is following. Plan for ECF on Monday
[2016-05-07] MEDS: WARFARIN 3 MG TAB PO SCH (17:30)
[2016-05-07] MEDS: LISINOPRIL 10 MG TAB PO SCH (20:55)
[2016-05-08] MEDS: METOCLOPRAMIDE 5 MG/ML 2 ML VIAL IVP SCH ×4 (05:29→22:23)
[2016-05-08] MEDS: MODAFINIL 200 MG TAB PO SCH ×2 (05:50→15:08)
[2016-05-08] MEDS: HYDROcodone/APAP 7.5-325MG 1 EACH TAB PO PRN ×4 (07:48→20:11)
[2016-05-08] MEDS: METOPROLOL TARTRATE 50 MG TAB PO SCH ×2 (07:51→20:50)
[2016-05-08] MEDS: TAMSULOSIN 0.4 MG CAP.ER.24H PO SCH ×2 (07:52→20:50)
[2016-05-08] MEDS: ATORVASTATIN 20 MG TAB PO SCH (07:52)
[2016-05-08] MEDS: PREGABALIN 75 MG CAP PO SCH ×2 (07:52→20:50)
[2016-05-08] MEDS: amLODIPine 5 MG TAB PO SCH (07:52)
[2016-05-08] MEDS: SODIUM BICARBONATE TAB 650 MG TAB PO SCH ×3 (07:53→20:55)
[2016-05-08] MEDS: ENOXAPARIN 40 MG/0.4 ML SYRINGE SQ SCH (07:53)
[2016-05-08] MEDS: FAMOTIDINE 20 MG/2 ML VIAL IV SCH (07:54)
[2016-05-08] MEDS: FINASTERIDE 5 MG TAB PO SCH (07:55)
[2016-05-08 08:18] LABS: Basophils % (A) 0 %; CH 31.4; CHCM 34.3; Eosinophils # (A) 0.3 k/uL (0-0.7); Eosinophils % (A) 5 %; HCT 26.8 % (39.0-53.0); HDW 3.42; HGB 9.1 gm/dL (13.0-17.5); Luc # (Auto) 0.14; Luc % (Auto) 2; Lymphocytes % (A) 17 %; MCH 31.4 pg (25.0-35.0); MCV 92.3 fL (80.0-100.0); Mean Platelet Volume 8.1; Monocytes # (A) 0.3 k/uL (0-1.0); Monocytes % (A) 5 %; Neutrophils # (A) 4.3 k/uL (1.3-7.7); Neutrophils % (A) 70 %; Poikilocytosis Slight; RDW 14.8 % (11.5-15.5); WBC 6.1 k/uL (3.8-10.6); WBC (Perox) 6.59
[2016-05-08 08:26] LABS: INR 1.1 (<1.1); Prothrombin Time 10.9 sec (9.0-12.0)
[2016-05-08 08:33] LABS: Calcium 8.1 mg/dL (8.4-10.2); Potassium 4.1 mmol/L (3.5-5.1); Total Bilirubin 0.9 mg/dL (0.2-1.3); Total Protein 5.5 g/dL (6.3-8.2)
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
--- NOTE | 2016-05-08 09:43 | P.PN ---
Subjective Patient is seen in follow-up for acute kidney injury on chronic kidney disease. Patient has chronic kidney disease stage IIIB secondary to IgA nephropathy. Patient has completed a six-month course of prednisone. GFR is at baseline creatinine at 2.16 today. Currently sitting up in bed. Denies chest pain or shortness of breath. He's been ambulating. No vomiting or diarrhea. Oral intake is good. He has a Daugherty catheter in place and is nonoliguric. Vital signs are stable. General: The patient appeared well nourished and normally developed. HEENT: Head exam is unremarkable. Neck is without jugular venous distension. LUNGS: Lungs are clear to auscultation and percussion. Breath sounds decreased. HEART: Rate and Rhythm are regular. First and second heart sounds normal. No murmurs, rubs or gallops. ABDOMEN: Abdominal exam reveals normal bowel sounds. Non-tender and non- distended. No evidence of peritonitis. EXTREMITITES: No clubbing, cyanosis, or edema. Objective - Vital Signs Vital signs: Vital Signs Temp 99.5 F 05/08/16 07:25 Pulse 94 05/08/16 07:25 Resp 18 05/08/16 07:25 BP 169/94 05/08/16 07:25 Pulse Ox 94 L 05/08/16 08:53 Intake & Output 05/07/16 05/08/16 05/08/16 18:59 06:59 18:59 Output Total 1100 500 Balance -1100 -500 Weight 108.5 kg 111 kg Output: Urine 1100 500 Other: Voiding Method Indwelling Catheter Indwelling Catheter # Voids 2 - Labs CBC & Chem 7: 05/08/16 00:02 05/08/16 08:04 Labs: Abnormal Lab Results - Last 24 Hours (Table) 05/08/16 05/08/16 Range/Units 00:02 08:04 RBC 2.90 L (4.30-5.90) m/uL Hgb 9.1 L (13.0-17.5) gm/dL Hct 26.8 L (39.0-53.0) % Chloride 110 H (98-107) mmol/L BUN 30 H (9-20) mg/dL Creatinine 2.16 H (0.66-1.25) mg/dL Glucose 131 H (74-99) mg/dL Calcium 8.1 L (8.4-10.2) mg/dL Total Protein 5.5 L (6.3-8.2) g/dL Albumin 2.6 L (3.5-5.0) g/dL Assessment and Plan Plan: Assessment: #1. Nonoliguric acute kidney injury mostly prerenal in nature secondary to acute anemia and NSAIDs. Resolved. #2. Acute postoperative anemia with hemoglobin 6.4 status post packed red blood cell transfusions. Improved. #3. Metabolic acidosis secondary to acute kidney injury. Stable. #4. Chronic kidney disease stage IIIB secondary to IgA nephropathy with baseline creatinine near 2.2. He was treated with 6 month course of steroids. #5. Perforated diverticulitis status post umbilical hernia repair and laparoscopic cholecystectomy. Plan:. Hep-Lock IV fluids. Encourage oral intake. Avoid nephrotoxic agents and hypotensive episodes. Maintain oral sodium bicarbonate supplementation. Urology following. Daugherty catheter to be discontinued today for a trial of void.
--- NOTE | 2016-05-08 10:07 | P.PN ---
Progress Note - Text The patient is doing well. He has minimal clearance of pain. He has been seen by urology for his urinary retention. On exam his vital signs are stable. His abdomen soft. His incision site is clean dry and intact. His abdominal wall ecchymosis has improved. Patient will undergo trial of voiding and removal of catheter today. We are still awaiting his INR to become therapeutic.
--- NOTE | 2016-05-08 13:23 | P.PN ---
Subjective No events overnight. Daugherty catheter removed this morning. Patient did not void as of yet. Objective - Vital Signs Vital signs: Vital Signs Temp 99.5 F 05/08/16 07:25 Pulse 94 05/08/16 07:25 Resp 18 05/08/16 07:25 BP 169/94 05/08/16 07:25 Pulse Ox 94 L 05/08/16 08:53 Intake & Output 05/07/16 05/08/16 05/08/16 18:59 06:59 18:59 Output Total 1100 500 Balance -1100 -500 Weight 108.5 kg 111 kg Output: Urine 1100 500 Other: Voiding Method Indwelling Catheter Indwelling Catheter Indwelling Catheter # Voids 2 - Exam General: The patient is awake and alert, in no distress Eye: there is normal conjunctiva bilaterally. Neck: The neck is supple, there is no JVD. Cardiovascular: Normal S1-S2, no S3-S4, no murmurs. Respiratory: Lungs clear to auscultation bilaterally Gastrointestinal: Abdomen is soft, nontender Musculoskeletal: There is no pedal edema. Neurological:. Speech is normal. Skin: Skin is warm and dry - Labs CBC & Chem 7: 05/08/16 00:02 05/08/16 08:04 Labs: Abnormal Lab Results - Last 24 Hours (Table) 05/08/16 05/08/16 Range/Units 00:02 08:04 RBC 2.90 L (4.30-5.90) m/uL Hgb 9.1 L (13.0-17.5) gm/dL Hct 26.8 L (39.0-53.0) % Chloride 110 H (98-107) mmol/L BUN 30 H (9-20) mg/dL Creatinine 2.16 H (0.66-1.25) mg/dL Glucose 131 H (74-99) mg/dL Calcium 8.1 L (8.4-10.2) mg/dL Total Protein 5.5 L (6.3-8.2) g/dL Albumin 2.6 L (3.5-5.0) g/dL Assessment and Plan Plan: 1. Diverticulitis with previous history of perforated diverticulitis, cholelithiasis and umbilical hernia: Patient is status post laparoscopic cholecystectomy, laparoscopic assisted lower anterior resection and umbilical hernia repair. Patient tolerated surgery well. Patient is tolerating diet. Pain is controlled on oral meds. 2. Episode of respiratory distress after IV Dilaudid. Patient was given Narcan. Symptoms have resolved. 3. History of multiple PEs and DVT of the left leg diagnosed in July 2015: Resume patient's Coumadin. Continue Lovenox until INR is therapeutic greater than or equal to 2. Recommend monitoring patient's PT/INR in hospital until Monday. Recommend holding off on discharge so patient can be closely monitored for any bleeding. 4. IgA nephropathy and chronic kidney disease stage III 5. Essential hypertension: Resume lisinopril and metoprolol. Continue hydralazine when necessary. Elevated blood pressure this morning of 173/93. Repeat blood pressures 129/76 6. Hyperlipidemia resume Lipitor 7. History of obstructive sleep apnea 8. Previous history of abdominal abscess treated with antibiotics 9. Anemia likely acute blood loss anemia due to abdominal wound bleeding. Patient did require blood transfusion. Monitor hemoglobin. Lovenox dose was decreased to 40 mg subcu daily 10. Urinary retention. Daugherty catheter reinserted. Continue Flomax and Proscar. Urology consulted 11. Acute kidney injury secondary to anemia and NSAIDs. Nephrology is following. Plan for ECF on Monday. Daugherty catheter discontinued today. Continue postvoid residuals.
[2016-05-08] MEDS: WARFARIN 3 MG TAB PO SCH (18:22)
[2016-05-08] MEDS ORDERED: FLUTICASONE 50MCG/SPRAY NASAL 16GM EA NOSTRIL PRN (18:30)
[2016-05-08] MEDS: LISINOPRIL 10 MG TAB PO SCH (20:50)
[2016-05-09] MEDS: HYDROcodone/APAP 7.5-325MG 1 EACH TAB PO PRN ×4 (00:24→12:23)
[2016-05-09 01:07] VITALS: RESP 16
[2016-05-09] MEDS: MODAFINIL 200 MG TAB PO SCH ×2 (05:07→12:23)
[2016-05-09] MEDS: METOCLOPRAMIDE 5 MG/ML 2 ML VIAL IVP SCH ×2 (05:07→12:24)
[2016-05-09 07:58] VITALS: BP 160/96; PULSE 78; TEMP 97
[2016-05-09] MEDS: PREGABALIN 75 MG CAP PO SCH (08:27)
[2016-05-09] MEDS: ATORVASTATIN 20 MG TAB PO SCH (08:27)
[2016-05-09] MEDS: FINASTERIDE 5 MG TAB PO SCH (08:27)
[2016-05-09] MEDS: METOPROLOL TARTRATE 50 MG TAB PO SCH (08:27)
[2016-05-09] MEDS: FAMOTIDINE 20 MG/2 ML VIAL IV SCH (08:27)
[2016-05-09] MEDS: SODIUM BICARBONATE TAB 650 MG TAB PO SCH (08:27)
[2016-05-09] MEDS: ENOXAPARIN 40 MG/0.4 ML SYRINGE SQ SCH (08:28)
[2016-05-09] MEDS: TAMSULOSIN 0.4 MG CAP.ER.24H PO SCH (08:28)
[2016-05-09] MEDS: amLODIPine 5 MG TAB PO SCH (08:28)
[2016-05-09 09:07] LABS: Basophils % (A) 0 %; CH 30.9; CHCM 33.2; Eosinophils # (A) 0.4 k/uL (0-0.7); Eosinophils % (A) 7 %; HCT 27.5 % (39.0-53.0); HDW 3.35; HGB 8.9 gm/dL (13.0-17.5); Luc # (Auto) 0.25; Luc % (Auto) 4; Lymphocytes # (A) 1.2 k/uL (1.0-4.8); Lymphocytes % (A) 21 %; MCH 30.4 pg (25.0-35.0); MCHC 32.4 g/dL (31.0-37.0); MCV 93.6 fL (80.0-100.0); Mean Platelet Volume 6.8; Monocytes # (A) 0.5 k/uL (0-1.0); Monocytes % (A) 8 %; Neutrophils # (A) 3.6 k/uL (1.3-7.7); Neutrophils % (A) 60 %; RBC 2.94 m/uL (4.30-5.90); RDW 14.4 % (11.5-15.5); WBC 5.9 k/uL (3.8-10.6); WBC (Perox) 5.74
[2016-05-09 09:39] LABS: Calcium 8.3 mg/dL (8.4-10.2); Potassium 4.5 mmol/L (3.5-5.1); Total Bilirubin 0.8 mg/dL (0.2-1.3); Total Protein 5.5 g/dL (6.3-8.2)
[2016-05-09 09:51] LABS: Prothrombin Time 10.3 sec (9.0-12.0)
--- NOTE | 2016-05-09 13:05 | P.PN ---
Subjective Patient presents to the hospital for laparoscopic cholecystectomy and laparoscopic assisted lower anterior resection. Pain controlled on oral pain medications. Still has Daugherty catheter in place due to urinary retention. He' ll likely need this for about one week. Surgery has cleared patient for discharge. However for monitoring patient's anticoagulation would recommend that he be discharged on Monday. Patient has had bowel movements. Tolerating soft diet. Denies any chest pain or shortness of breath. Patient has shown improvement. Urinary retention has resolved. Post void residuals were checked showing no more evidence of urinary retention. Patient denies any chest pain or shortness breath. Denies any nausea vomiting. He has been having bowel movements. Tolerating diet. Objective - Vital Signs Vital signs: Vital Signs Temp 97.0 F L 05/09/16 07:00 Pulse 78 05/09/16 08:00 Resp 16 05/09/16 08:00 BP 160/96 05/09/16 07:00 Pulse Ox 96 05/09/16 07:00 Intake & Output 05/08/16 05/09/16 05/09/16 18:59 06:59 18:59 Intake Total 240 Output Total 200 29 Balance 40 -29 Weight 110.5 kg Intake: Oral 240 Output: Post Void Residual 200 29 Other: Voiding Method Toilet Toilet # Voids 1 2 - Exam Head normocephalic Neck supple Lungs clear to auscultation bilaterally no wheezing or crackles Heart regular rate and rhythm S1-S2, no rub or gallop Abdomen is soft and distended hypoactive bowel sounds. Abdominal binder in place Extremities no edema Neuro alert and orientated to 3 - Labs CBC & Chem 7: 05/09/16 08:24 05/09/16 08:24 Labs: Abnormal Lab Results - Last 24 Hours (Table) 05/09/16 05/09/16 Range/Units 08:24 08:24 RBC 2.94 L (4.30-5.90) m/uL Hgb 8.9 L (13.0-17.5) gm/dL Hct 27.5 L (39.0-53.0) % Chloride 110 H (98-107) mmol/L Carbon Dioxide 21 L (22-30) mmol/L BUN 33 H (9-20) mg/dL Creatinine 2.13 H (0.66-1.25) mg/dL Glucose 111 H (74-99) mg/dL Calcium 8.3 L (8.4-10.2) mg/dL Total Protein 5.5 L (6.3-8.2) g/dL Albumin 2.6 L (3.5-5.0) g/dL Assessment and Plan Plan: 1. Diverticulitis with previous history of perforated diverticulitis, cholelithiasis and umbilical hernia: Patient is status post laparoscopic cholecystectomy, laparoscopic assisted lower anterior resection and umbilical hernia repair. Patient tolerated surgery well. Patient is tolerating diet. Pain is controlled on oral meds. 2. Episode of respiratory distress after IV Dilaudid. Patient was given Narcan. Symptoms have resolved. 3. History of multiple PEs and DVT of the left leg diagnosed in July 2015: Resume patient's Coumadin. Continue Lovenox until INR is therapeutic greater than or equal to 2. Recommend monitoring patient's PT/INR in hospital until Monday. Recommend holding off on discharge so patient can be closely monitored for any bleeding. 4. IgA nephropathy and chronic kidney disease stage III 5. Essential hypertension: Resume lisinopril and metoprolol. Norvasc added during this admission. 6. Hyperlipidemia resume Lipitor 7. History of obstructive sleep apnea 8. Previous history of abdominal abscess treated with antibiotics 9. Anemia likely acute blood loss anemia due to abdominal wound bleeding. Patient did require blood transfusion. Monitor hemoglobin. Lovenox dose was decreased to 40 mg subcu daily 10. Urinary retention. Daugherty catheter reinserted. Continue Flomax and Proscar. 11. Acute kidney injury secondary to anemia and NSAIDs. Nephrology is following. Creatinine down to 2.29. Patient is medically stable for discharge. Recommending continuing his home dose of Coumadin. INR at discharge is 1.0. Recommend checking PT/INR on Monday. We'll patient follow-up with his PCP in 1 week.
--- NOTE | 2016-05-09 17:10 | P.DS ---
Providers Date of admission: 04/29/16 06:12 Expected date of discharge: 05/09/16 Attending physician: Sam Camejo Consults: 04/29/16 10:07 Consult Physician Routine Consulting Provider: Jacki Matos Consult Reason/Comments: Medical management Do you want consulting provider notified?: Yes 05/03/16 10:47 Consult Physician Urgent Consulting Provider: Tristan Vogel Consult Reason/Comments: renal failure Do you want consulting provider notified?: Yes 05/07/16 11:00 Consult Physician Routine Consulting Provider: Gee Bernard Consult Reason/Comments: Patient known, dysuria, BPH Do you want consulting provider notified?: Yes Primary care physician: Elizabeth Rausch Hospital Course: Patient is a 65-year-old white male with medical history significant for perforated diverticulitis with history of abscess and cholelithiasis who presented to the hospital for elective laparoscopic cholecystectomy and laparoscopic assisted lower anterior resection. Patient tolerated surgery well. Postoperatively, patient developed respiratory distress after receiving IV Dilaudid and patient was given Narcan with symptoms resolved. In addition, patient had an episode of acute blood loss anemia due to with abdominal wound bleeding secondary to Lovenox dosing. Patient did require blood transfusion and Lovenox dose was reduced per medicine. Patient also experienced urinary retention postoperatively which necessitated insertion of Daugherty catheter. Patient was evaluated by urology and will follow-up in the outpatient setting. Patient was evaluated by nephrology service for history of acute on chronic renal failure which improved during hospital stay. Patient improved significantly and was deemed stable for discharge to home with physical therapy with close follow-up in the outpatient setting. Discharge diagnoses: 1. Status post laparoscopic cholecystectomy for cholelithiasis on 04/29/2016. 2. Status post laparoscopic-assisted low anterior resection on 04/29/2016. 3. Umbilical hernia. 4. Diverticulitis with history of perforated diverticulitis. 5. Acute blood loss anemia secondary to Lovenox. 6. Urinary retention. 7. Acute kidney injury secondary to anemia and NSAIDs, improved. 8. Chronic kidney disease stage III. 9. History of PEs and DVTs of left leg. 10. History of abdominal abscess. The above impression and plan have been discussed and directed by Dr. Camejo. Nayla PERALTA acting as scribe for Dr. Camejo. Pertinent Studies: Chest x-ray Procedures: Laparoscopic cholecystectomy Laparoscopic-assisted low anterior section Umbilical hernia Patient Condition at Discharge: Good Plan - Discharge Summary New Discharge Prescriptions: ALPRAZolam [Xanax] 0.25 mg PO BID #14 tab Finasteride [Proscar] 5 mg PO DAILY #30 tab HYDROcodone/APAP 7.5-325MG [Crawford 7.5-325] 1 each PO Q6H PRN #28 tab PRN Reason: Moderate Pain Pregabalin [Lyrica] 75 mg PO BID #14 cap Tamsulosin [Flomax] 0.4 mg PO BID #60 cap.er.24h amLODIPine [Norvasc] 5 mg PO DAILY #30 tab Discharge Medication List Allopurinol [Zyloprim] 100 mg PO DAILY 10/25/15 [History] Atorvastatin Calcium [Lipitor] 20 mg PO DAILY 10/25/15 [History] Betamethasone Dipropionate [Diprolene AF 0.05% Cream] 1 applic TOPICAL DAILY PRN 10/25/15 [History] Ferrous Sulfate [Feosol] 325 mg PO BID 10/25/15 [History] Metoprolol Tartrate [Lopressor] 50 mg PO BID 10/25/15 [History] Omeprazole 20 mg PO DAILY PRN 10/25/15 [History] Warfarin Sodium [Coumadin] 3 mg PO SUTUTHSA 10/25/15 [History] Colchicine [Colcrys] 0.6 mg PO DAILY 04/26/16 [History] Lisinopril [Zestril] 10 mg PO HS 04/26/16 [History] Modafinil [Provigil] 200 mg PO BID 04/26/16 [History] ALPRAZolam [Xanax] 0.25 mg PO BID #14 tab 05/06/16 [Rx] HYDROcodone/APAP 7.5-325MG [Crawford 7.5-325] 1 each PO Q6H PRN #28 tab 05/06/16 [ Rx] Pregabalin [Lyrica] 75 mg PO BID #14 cap 05/06/16 [Rx] Finasteride [Proscar] 5 mg PO DAILY #30 tab 05/09/16 [Rx] Tamsulosin [Flomax] 0.4 mg PO BID #60 cap.er.24h 05/09/16 [Rx] Warfarin [Coumadin] 4 mg PO [id number] tab 05/09/16 [Rx] amLODIPine [Norvasc] 5 mg PO DAILY #30 tab 05/09/16 [Rx] Follow up Appointment(s)/Referral(s): [facility], [NON-STAFF] - Tristan Vogel DO [STAFF PHYSICIAN] - 1 Week (Office currently closed. Call for appointment) Elizabeth Rausch DO [Primary Care Provider] - 05/12/16 2:00 pm (with Haylee) Misbah Harris MD [STAFF PHYSICIAN] - 05/16/16 8:40 am Sam Camejo MD [STAFF PHYSICIAN] - 05/19/16 2:20 pm Patient Instructions/Handouts: *Surgery [facility] - ([facility]) Laparoscopic Cholecystectomy Post-Op Instruct, Colectomy (DC), Staple Care (DC) Activity/Diet/Wound Care/Special Instructions: No heavy lifting, pushing, or pulling items greater than 10 pounds. Soft diet Shower daily, no soaking in bath tubs, pools, or hot tubs. No driving while taking pain medication. Notify surgeon with any signs or symptoms of infection, increased pain, or not tolerating diet. Wound care: change dressing daily and cover with abd dressing. Discharge Disposition: HOME WITH HOME HEALTH SERVICES
[2016-05-09] MEDS ORDERED: WARFARIN 2 MG TAB PO SCH (18:00)
--- NOTE | 2016-05-09 23:42 | PN ---
Patient is seen for followup for acute kidney injury on top of chronic disease. His renal function has improved. He also had urine retention and a Daugherty catheter was placed, which is now discontinued, and patient has been able to void. He is maintained on Flomax 0.4 mg twice a day. On examination, blood pressure was 163/105, heart rate 83 per minute. Patient is afebrile. Examination shows he is euvolemic with no evidence of edema in lower extremities. Labs are noted with serum creatinine at 2.13, sodium 142, potassium 4.5. Hemoglobin 8.9 g/dL. ASSESSMENT: 1. Acute kidney injury, non-oliguric, currently improved. 2. Chronic kidney disease, stable, with creatinine at baseline. 3. Urine retention, status post discontinuation of Daugherty catheter. Patient is able to void on his own. He is maintained on Flomax 0.4 mg b.i.d. 4. Perforated diverticulitis, status post umbilical hernia repair and laparoscopic cholecystectomy. PLAN: Follow up as outpatient in about one week's time.
== END 2016-05-09 13:45 | disposition home health service (06) | DRG 329 ==
LOC: 2ORWHC 06:12 → 3SUR 10:22 → 4MS4W 05-01 12:11
PROVIDERS: ADMIT Surgery; ATTEND Surgery
PROC: 0D1N4Z4 Bypass Sigmoid Colon to Cutaneous, Percutaneous Endoscopic Approach (ICD-10-PCS; 2016-04-29)
PROC: 0FT44ZZ Resection of Gallbladder, Percutaneous Endoscopic Approach (ICD-10-PCS; 2016-04-29)
PROC: 0WQF0ZZ Repair Abdominal Wall, Open Approach (ICD-10-PCS; 2016-04-29)
PROC: 0DBN4ZZ Excision of Sigmoid Colon, Percutaneous Endoscopic Approach (ICD-10-PCS; 2016-04-29 07:40)
PROC: 30233N1 Transfusion of Nonautologous Red Blood Cells into Peripheral Vein, Percutaneous Approach (ICD-10-PCS; principal; 2016-05-03)
DX: K57.80 Diverticulitis of intestine, part unspecified, with perforation and abscess without bleeding (principal); N17.0 Acute kidney failure with tubular necrosis; E87.2 Acidosis; N13.8 Other obstructive and reflux uropathy; K80.10 Calculus of gallbladder with chronic cholecystitis without obstruction; E87.5 Hyperkalemia; D62 Acute posthemorrhagic anemia; N18.3 Chronic kidney disease, stage 3 (moderate); E78.5 Hyperlipidemia, unspecified; G47.33 Obstructive sleep apnea (adult) (pediatric); K42.9 Umbilical hernia without obstruction or gangrene; K21.9 Gastro-esophageal reflux disease without esophagitis; I12.9 Hypertensive chronic kidney disease with stage 1 through stage 4 chronic kidney disease, or unspecified chronic kidney disease; N40.1 Benign prostatic hyperplasia with lower urinary tract symptoms; R33.8 Other retention of urine; F41.9 Anxiety disorder, unspecified; Z86.718 Personal history of other venous thrombosis and embolism; Z87.891 Personal history of nicotine dependence; Z86.711 Personal history of pulmonary embolism; Z79.01 Long term (current) use of anticoagulants; Z79.899 Other long term (current) drug therapy
CPT/HCPCS: 45380; 71020; 80048; 80053; 81001; 84132; 85025; 85027; 85610; 85730; 86850; 86900; 86901; 86920; 87086; 88304; 88305; 88307; 92950; 94760; 94762; 99153